=== PATIENT | female | born 1945 | race Two or more races ===

== ENCOUNTER 2021-02-17 19:00 | Inpatient (IN) | payer MEDICAID, OTHER ==
[~2021-02-17] VITALS: Ht 160 cm; Wt 46.9 kg
[2021-02-18] MEDS ORDERED: SODIUM CHLORIDE 0.9% 1,000 ML IV ONE ×2 (03:00→06:15)
[2021-02-18 05:27] LABS: Urine Bacteria FEW /hpf (None Seen); Urine Blood Negative /uL (Negative); Urine Hyaline Cast MOD /lpf (0 - 2); Urine Specific Gravity 1.015 (1.001-1.035); Urine WBC 3 /hpf (0 - 5)
[2021-02-18] MEDS ORDERED: ACETAMINOPHEN 650 MG RECT SUPP PR ONE (05:30)
[2021-02-18] MEDS ORDERED: SODIUM CHLORIDE 0.9% 2,000 ML IV ONE ×2 (05:45→14:30)
[2021-02-18] MEDS ORDERED: PIPERACILLIN-TAZOB 3.375GM 100 ML IV ONE (05:45)
[2021-02-18] MEDS ORDERED: ACETAMINOPHEN 325 MG TAB PO ONE (05:45)
[2021-02-18] MEDS ORDERED: VANCOMYCIN 1GM/250ML 250 ML IV ONE (05:45)
[2021-02-18] MEDS ORDERED: InsuLIN REG 1unit/0.01ml Soln (100units/ml) IV ONE (06:00)
[2021-02-18 07:55] LABS: White Blood Cell 9.2 10^3/uL (4.4-10.8)
[2021-02-18 07:58] LABS: Hematocrit 41.7 % (36.0-46.0); Mean Corpuscular Hemoglobin 29.5 pg (28.0-32.0); Mean Corpuscular Hgb Conc. 33.5 g/dL (32.0-36.0); Red Blood Cells 4.74 10^6/uL (4.0-5.20); Red Cell Distribution Width 13.5 % (11.8-14.3)
[2021-02-18 08:08] LABS: Basophils % (manual) 0 (0.0-2.0); Blast Cells 0; Calcium 8.2 mg/dL (8.5-10.1); Eosinophils % (manual) 0 (0-7); Lactic Acid w/Reflex 3.9 mmol/L (0.4-2.0); Promyelocytes % 0; Reactive Lymphocytes 0
[2021-02-18 08:14] LABS: INR 1.27 (0.9-1.15); Partial Thromboplastin Time 31.9 sec (23.6-33.0)
[2021-02-18 08:17] LABS: Albumin 2.1 g/dL (3.4-5.0); Bilirubin, Total 1.3 mg/dL (0.2-1.0); Magnesium 3.1 mg/dL (1.6-2.6); Total Protein 6.4 g/dL (6.4-8.2)
[2021-02-18 08:48] LABS: Band Neutrophils % (manual) 32; Lymphocytes % (manual) 4 (10.0-50.0); Metamyelocytes % 1; Monocytes % (manual) 1 (0-12); Myelocytes % 2
[2021-02-18] MEDS ORDERED: POTASSIUM CHL 20MEQ/100ML 100 ML IV ONE ×2 (09:15→18:45)
[2021-02-18] MEDS: NOREPINEPHRINE 8 MG/250ML KIT 250 ML IV SCH (12:18)
[2021-02-18 14:14] LABS: Potassium 2.9 mmol/L (3.5-5.1)
[2021-02-18 14:21] LABS: Albumin 1.8 g/dL (3.4-5.0); Calcium 7.5 mg/dL (8.5-10.1); Potassium 3.2 mmol/L (3.5-5.1)
[2021-02-18 14:24] LABS: BUN/Creatinine Ratio 36.2; Bilirubin, Total 1.2 mg/dL (0.2-1.0); Total Protein 5.8 g/dL (6.4-8.2)
[2021-02-18] MEDS ORDERED: MORPHINE SULFATE INJECTION 2 MG/ML SYRG IV PRN (14:30)
[2021-02-18] MEDS ORDERED: NITROGLYCERIN 0.4 MG SL TAB SL PRN (14:30)
[2021-02-18] MEDS ORDERED: DEXTROSE (50%) 50ML SYRG IV PRN (14:30)
[2021-02-18] MEDS ORDERED: ONDANSETRON HCL 4 MG/2 ML VIAL IV PRN (14:30)
[2021-02-18] MEDS ORDERED: ACETAMINOPHEN 325 MG RECT SUPP PR PRN (14:30)
[2021-02-18] MEDS ORDERED: VANCOMYCIN PER PHARMACY 0 MG IV SCH (14:45)
[2021-02-18] MEDS ORDERED: ENOXAPARIN SOD 60 MG/0.6 ML SYRINGE SC ONE (15:15)
[2021-02-18 15:50] LABS: Hematocrit 39.7 % (36.0-46.0); Hemoglobin 12.9 g/dL (12.2-16.2); Mean Corpuscular Hemoglobin 29.2 pg (28.0-32.0); Mean Corpuscular Hgb Conc. 32.5 g/dL (32.0-36.0); Mean Corpuscular Volume 89.8 fL (80.0-100.0); Red Blood Cells 4.42 10^6/uL (4.0-5.20); Red Cell Distribution Width 13.3 % (11.8-14.3); White Blood Cell 27.5 10^3/uL (4.4-10.8)
[2021-02-18] MEDS ORDERED: CEFEPIME 1 GM in SODIUM CHL 0.9% 50 ML IV SCH (16:00)
[2021-02-18 16:05] LABS: Basophils % (manual) 0 (0.0-2.0); Blast Cells 0; Eosinophils % (manual) 0 (0-7); Metamyelocytes % 0; Myelocytes % 0; Promyelocytes % 0; Reactive Lymphocytes 0
[2021-02-18 16:29] LABS: Band Neutrophils % (manual) 35; Lymphocytes % (manual) 4 (10.0-50.0); Monocytes % (manual) 5 (0-12)
[2021-02-18] MEDS: SODIUM CHLORIDE 0.9% 1,000 ML IV SCH (16:36)
[2021-02-18] MEDS ORDERED: POTASSIUM EFFERVESENT TAB 25 MEQ GT ONE (16:45)
[2021-02-18] MEDS ORDERED: AMIODARONE HCL 150 MG in D5W 5% 100 ML IV ONE (16:45)
[2021-02-18] MEDS ORDERED: AMIODARONE 450mg/250ml AE 250 ML IV SCH (17:00)
[2021-02-18] MEDS ORDERED: AMIODARONE HCL (50 MG/ ML) 3 ML VIAL IV ONE (17:33)
[2021-02-18] MEDS ORDERED: PIPERACILLIN-TAZOB 2.25GM 50 ML IV SCH (18:00)
[2021-02-18 18:01] LABS: Albumin 1.5 g/dL (3.4-5.0); BUN/Creatinine Ratio 38.9; Calcium 6.6 mg/dL (8.5-10.1)
[2021-02-18 18:10] LABS: Bilirubin, Total 0.9 mg/dL (0.2-1.0); Total Protein 5.2 g/dL (6.4-8.2)
[2021-02-18 18:21] LABS: Potassium 2.7 mmol/L (3.5-5.1)
[2021-02-18] MEDS: ACCU-CHEK COMFORT CURVE STRIP VI SCH (18:40)
[2021-02-18] MEDS: InsuLIN REG 1unit/0.01ml Soln (100units/ml) SC SCH (18:50)
[2021-02-18] MEDS ORDERED: LORazepam 2MG/ML-1ML VIAL ONE (20:47)
[2021-02-18] MEDS: AMIODARONE 450mg/250ml AE 250 ML IV SCH (23:22)
[2021-02-19] MEDS: InsuLIN REG 1unit/0.01ml Soln (100units/ml) SC SCH ×4 (00:13→21:50)
[2021-02-19] MEDS: ACCU-CHEK COMFORT CURVE STRIP VI SCH ×4 (00:13→21:18)
[2021-02-19] MEDS: SODIUM CHLORIDE 0.9% 1,000 ML IV SCH ×2 (03:50→17:23)
[2021-02-19] MEDS ORDERED: CEFEPIME 1 GM in SODIUM CHL 0.9% 50 ML IV SCH (06:00)
[2021-02-19 08:45] LABS: Basophils # (auto) 0 10 ^3/uL (0-0.2); Basophils % (auto) 0.1 % (0.0-2.0); Eosinophils # (auto) 1.2 10 ^3/uL (0-0.8); Eosinophils % (auto) 6.4 % (0.0-7.0); Hematocrit 37.8 % (36.0-46.0); Hemoglobin 12.2 g/dL (12.2-16.2); Lymphocytes # (auto) 0.5 10 ^3/uL (0.4-5.4); Lymphocytes % (auto) 2.4 % (10.0-50.0); Mean Corpuscular Hemoglobin 28.8 pg (28.0-32.0); Mean Corpuscular Hgb Conc. 32.2 g/dL (32.0-36.0); Mean Corpuscular Volume 89.6 fL (80.0-100.0); Monocytes # (auto) 0.3 10 ^3/uL (0-1.3); Monocytes % (auto) 1.7 % (0.0-12.0); Neutrophils # (auto) 17.2 10 ^3/uL (1.6-8.6); Neutrophils % (auto) 89.4 % (37.0-80.0); Nucleated Red Blood Cells % 0.4 %; Red Blood Cells 4.22 10^6/uL (4.0-5.20); Red Cell Distribution Width 13.6 % (11.8-14.3); White Blood Cell 19.2 10^3/uL (4.4-10.8)
[2021-02-19 09:30] LABS: Potassium 3.1 mmol/L (3.5-5.1); Sodium 146 mmol/L (136-145)
[2021-02-19 09:31] LABS: Alanine Aminotransferase 189 U/L (13-56); Albumin 1.4 g/dL (3.4-5.0); Alkaline Phosphatase 541 U/L (45-117); Anion Gap 12 (5-15); Aspartate Aminotransferase 373 U/L (15-37); BUN/Creatinine Ratio 38.1; Bilirubin, Total 2.1 mg/dL (0.2-1.0); Blood Urea Nitrogen 45 mg/dL (7-18); Calcium 7.2 mg/dL (8.5-10.1); Carbon Dioxide 11 mmol/L (21-32); Chloride 123 mmol/L (98-107); Cholesterol < 50 mg/dL (< 200); GFR African American 57 mL/min; GFR Non-African American 47 mL/min; Glucose 160 mg/dL (74-106); HDL Cholesterol 11 mg/dL (40-59); LDL Cholesterol 15 mg/dL (< 100); Total Protein 4.9 g/dL (6.4-8.2); Triglycerides 105 mg/dL (< 150)
[2021-02-19] MEDS ORDERED: ENOXAPARIN SOD 60 MG/0.6 ML SYRINGE SC SCH (10:00)
[2021-02-19] MEDS: PANTOPRAZOLE 40 MG/10 ML VIAL INJ IV SCH (10:20)
[2021-02-19] MEDS: NOREPINEPHRINE 8 MG/250ML KIT 250 ML IV SCH (11:00)
[2021-02-19 11:29] LABS: Lactic Acid w/Reflex 4.8 mmol/L (0.4-2.0)
[2021-02-19] MEDS ORDERED: LORazepam 2MG/ML-1ML VIAL IV PRN ×2 (11:30→22:45)
[2021-02-19] MEDS ORDERED: GADOTERATE MEG 7.5 MMOL/15ml INJ (0.5MMOL/ml) IV ONE (11:41)
[2021-02-19] MEDS ORDERED: VANCOMYCIN 1GM/250ML 250 ML IV ONE (13:45)
[2021-02-19] MEDS ORDERED: DIGOXIN (250MCG/ML) 2 ML AMPULE IV SCH (14:00)
[2021-02-19 14:40] LABS: Albumin 1.6 g/dL (3.4-5.0); Calcium 7.3 mg/dL (8.5-10.1); Potassium 3.4 mmol/L (3.5-5.1)
[2021-02-19 14:43] LABS: Amphetamine Screen, Urine NEGATIVE (NEGATIVE); Barbiturate Scree,Urine NEGATIVE (NEGATIVE); Benzodiazephine Screen, Urine NEGATIVE (NEGATIVE); Cannabinoid Screen, Urine NEGATIVE (NEGATIVE); Cocaine Screen, Urine NEGATIVE (NEGATIVE); Opiate Scree,Urine NEGATIVE (NEGATIVE); Phencyclidine Screen, Urine NEGATIVE (NEGATIVE)
[2021-02-19 14:46] LABS: BUN/Creatinine Ratio 35.3; Bilirubin, Total 2.8 mg/dL (0.2-1.0); Total Protein 5.2 g/dL (6.4-8.2)
[2021-02-19] MEDS: AMIODARONE 450mg/250ml AE 250 ML IV SCH (15:19)
[2021-02-19] MEDS ORDERED: MIDAZOLAM HCL 2MG/2ML 2ml VIAL (1mg/ml) IV ONE (15:30)
[2021-02-19] MEDS ORDERED: fentaNYL CITRATE 100 MCG/2 ML VL IV ONE (15:30)
[2021-02-19] MEDS ORDERED: fentaNYL CITRATE 100 MCG/2 ML VL ONE (15:37)
[2021-02-19] MEDS ORDERED: MIDAZOLAM HCL 2MG/2ML 2ml VIAL (1mg/ml) ONE (15:37)
[2021-02-19] MEDS ORDERED: ALBUMIN 25% 100 ML IV ONE (16:15)
[2021-02-19] MEDS ORDERED: SODIUM CHLORIDE 0.9% 1,000 ML IV ONE (16:15)
[2021-02-19] MEDS: metroNIDAZOLE 500MG/100ML 100 ML IV SCH (22:08)
[2021-02-19 22:41] LABS: Hemoglobin 13.7 g/dL (12.2-16.2)
[2021-02-19 22:43] LABS: Hematocrit 42.2 % (36.0-46.0); Mean Corpuscular Hemoglobin 29.2 pg (28.0-32.0); Mean Corpuscular Hgb Conc. 32.5 g/dL (32.0-36.0); Mean Corpuscular Volume 90.1 fL (80.0-100.0); Red Blood Cells 4.68 10^6/uL (4.0-5.20); Red Cell Distribution Width 13.8 % (11.8-14.3); White Blood Cell 28.8 10^3/uL (4.4-10.8)
[2021-02-19 22:58] LABS: Albumin 1.7 g/dL (3.4-5.0); Calcium 7.3 mg/dL (8.5-10.1); Potassium 3.7 mmol/L (3.5-5.1)
[2021-02-19 23:03] LABS: BUN/Creatinine Ratio 32.3; Bilirubin, Total 2.8 mg/dL (0.2-1.0); Total Protein 5.5 g/dL (6.4-8.2)
[2021-02-19 23:25] LABS: Basophils % (manual) 0 (0.0-2.0); Blast Cells 0; Metamyelocytes % 0; Myelocytes % 0; Promyelocytes % 0; Reactive Lymphocytes 0
[2021-02-19 23:41] LABS: Band Neutrophils % (manual) 21; Eosinophils % (manual) 3 (0-7); Lymphocytes % (manual) 11 (10.0-50.0); Monocytes % (manual) 6 (0-12)
[2021-02-20] MEDS: ACCU-CHEK COMFORT CURVE STRIP VI SCH ×5 (00:55→23:49)
[2021-02-20] MEDS: InsuLIN REG 1unit/0.01ml Soln (100units/ml) SC SCH ×5 (00:56→23:48)
[2021-02-20 02:06] VITALS: BP 125/41
[2021-02-20 02:13] VITALS: BP 125/41
[2021-02-20] MEDS: AMIODARONE 450mg/250ml AE 250 ML IV SCH ×2 (02:54→20:00)
[2021-02-20 03:40] VITALS: BP 107/59
[2021-02-20] MEDS: SODIUM CHLORIDE 0.9% 1,000 ML IV SCH (04:00)
[2021-02-20] MEDS: CEFEPIME 1 GM in SODIUM CHL 0.9% 50 ML IV SCH (05:42)
[2021-02-20] MEDS: metroNIDAZOLE 500MG/100ML 100 ML IV SCH ×3 (05:56→21:54)
[2021-02-20 08:11] LABS: INR 1.95 (0.9-1.15); Partial Thromboplastin Time 36.5 sec (23.6-33.0)
[2021-02-20] MEDS ORDERED: ALBUMIN 25% 100 ML IV ONE (08:13)
[2021-02-20] MEDS: NOREPINEPHRINE 8 MG/250ML KIT 250 ML IV SCH (11:00)
[2021-02-20] MEDS ORDERED: VANCOMYCIN PER PHARMACY 0 MG IV SCH (11:15)
[2021-02-20] MEDS ORDERED: VANCOMYCIN 1GM/250ML 250 ML IV ONE (11:30)
[2021-02-20 12:04] LABS: Hemoglobin 9.3 g/dL (12.2-16.2)
[2021-02-20 12:06] LABS: Hematocrit 28.7 % (36.0-46.0); Mean Corpuscular Hemoglobin 29.1 pg (28.0-32.0); Mean Corpuscular Hgb Conc. 32.3 g/dL (32.0-36.0); Mean Corpuscular Volume 90.1 fL (80.0-100.0); Red Blood Cells 3.18 10^6/uL (4.0-5.20); Red Cell Distribution Width 14.1 % (11.8-14.3); White Blood Cell 27.8 10^3/uL (4.4-10.8)
[2021-02-20] MEDS: PANTOPRAZOLE 40 MG/10 ML VIAL INJ IV SCH (12:14)
[2021-02-20 12:15] LABS: Basophils % (manual) 0 (0.0-2.0); Blast Cells 0; Eosinophils % (manual) 0 (0-7); Metamyelocytes % 0; Promyelocytes % 0; Reactive Lymphocytes 0
[2021-02-20 12:31] LABS: Albumin 1.3 g/dL (3.4-5.0); Magnesium 2.2 mg/dL (1.6-2.6)
[2021-02-20 12:36] LABS: BUN/Creatinine Ratio 50.6; Bilirubin, Total 2.7 mg/dL (0.2-1.0); Total Protein 3.4 g/dL (6.4-8.2)
[2021-02-20 12:57] LABS: Band Neutrophils % (manual) 12; Lymphocytes % (manual) 4 (10.0-50.0); Monocytes % (manual) 2 (0-12); Myelocytes % 1
[2021-02-20 12:58] LABS: Calcium 5.1 mg/dL (8.5-10.1); Potassium 2.3 mmol/L (3.5-5.1)
[2021-02-20] MEDS ORDERED: POTASSIUM EFFERVESENT TAB 25 MEQ GT ONE (13:15)
[2021-02-20] MEDS ORDERED: POTASSIUM CHLORIDE 40 MEQ, LIDOCAINE 1% (LOCAL ANESTH.) 4 ML in SODIUM CHL 0.9% 250 ML IV ONE (13:15)
[2021-02-20] MEDS ORDERED: CALCIUM GLUC 1,000mg/50ml-NS 50 ML IV ONE (13:15)
[2021-02-20] MEDS ORDERED: VANCOMYCIN 1GM/250ML 250 ML IV SCH (15:00)
[2021-02-20] MEDS ORDERED: ALBUMIN 25% 50 ML IV ONE (15:15)
[2021-02-20] MEDS: SODIUM BICARBONATE 50ML VIAL 50 ML in SOD CHL 0.45% 1,000 ML IV SCH (17:18)
[2021-02-20 19:10] LABS: Lymphocytes # (auto) 1.4 10 ^3/uL (0.4-5.4); Monocytes # (auto) 1.8 10 ^3/uL (0-1.3); Nucleated Red Blood Cells % 0.1 %; White Blood Cell 28.3 10^3/uL (4.4-10.8)
[2021-02-20 19:12] LABS: Basophils # (auto) 0 10 ^3/uL (0-0.2); Basophils % (auto) 0.1 % (0.0-2.0); Eosinophils # (auto) 1.7 10 ^3/uL (0-0.8); Eosinophils % (auto) 6.1 % (0.0-7.0); Hematocrit 34.3 % (36.0-46.0); Hemoglobin 11.3 g/dL (12.2-16.2); Mean Corpuscular Hemoglobin 28.8 pg (28.0-32.0); Mean Corpuscular Hgb Conc. 32.9 g/dL (32.0-36.0); Mean Corpuscular Volume 87.6 fL (80.0-100.0); Monocytes % (auto) 6.4 % (0.0-12.0); Neutrophils # (auto) 23.3 10 ^3/uL (1.6-8.6); Neutrophils % (auto) 82.4 % (37.0-80.0); Red Blood Cells 3.91 10^6/uL (4.0-5.20); Red Cell Distribution Width 14.1 % (11.8-14.3)
[2021-02-21] VITALS (13 sets, daily range): BP systolic 112–172; BP diastolic 63–110
[2021-02-21] MEDS: ACCU-CHEK COMFORT CURVE STRIP VI SCH ×3 (06:00→17:30)
[2021-02-21] MEDS: metroNIDAZOLE 500MG/100ML 100 ML IV SCH ×3 (06:11→22:53)
[2021-02-21] MEDS: CEFEPIME 1 GM in SODIUM CHL 0.9% 50 ML IV SCH (06:13)
[2021-02-21] MEDS: InsuLIN REG 1unit/0.01ml Soln (100units/ml) SC SCH ×3 (07:14→17:33)
[2021-02-21 09:28] LABS: Basophils # (auto) 0 10 ^3/uL (0-0.2); Basophils % (auto) 0.2 % (0.0-2.0); Eosinophils # (auto) 0.1 10 ^3/uL (0-0.8); Eosinophils % (auto) 0.6 % (0.0-7.0); Hematocrit 32.9 % (36.0-46.0); Hemoglobin 10.7 g/dL (12.2-16.2); Lymphocytes # (auto) 1.1 10 ^3/uL (0.4-5.4); Lymphocytes % (auto) 5.7 % (10.0-50.0); Mean Corpuscular Hemoglobin 28.3 pg (28.0-32.0); Mean Corpuscular Hgb Conc. 32.6 g/dL (32.0-36.0); Mean Corpuscular Volume 86.8 fL (80.0-100.0); Monocytes % (auto) 5.5 % (0.0-12.0); Neutrophils # (auto) 16.4 10 ^3/uL (1.6-8.6); Nucleated Red Blood Cells % 0.1 %; Red Blood Cells 3.79 10^6/uL (4.0-5.20); Red Cell Distribution Width 14.5 % (11.8-14.3); White Blood Cell 18.6 10^3/uL (4.4-10.8)
[2021-02-21 09:46] LABS: Albumin 1.7 g/dL (3.4-5.0); Calcium 7.5 mg/dL (8.5-10.1); Potassium 4.9 mmol/L (3.5-5.1)
[2021-02-21 09:50] LABS: Bilirubin, Total 5.3 mg/dL (0.2-1.0); Total Protein 4.8 g/dL (6.4-8.2)
[2021-02-21] MEDS: PANTOPRAZOLE 40 MG/10 ML VIAL INJ IV SCH (10:00)
[2021-02-21] MEDS: AMIODARONE 450mg/250ml AE 250 ML IV SCH (10:16)
[2021-02-21] MEDS: SODIUM BICARBONATE 50ML VIAL 50 ML in SOD CHL 0.45% 1,000 ML IV SCH (10:22)
[2021-02-21] MEDS ORDERED: FUROSEMIDE 40 MG/4 ML VIAL ONE (20:25)
[2021-02-21] MEDS ORDERED: FUROSEMIDE 40 MG/4 ML VIAL IV ONE (20:30)
[2021-02-21 22:03] LABS: Hematocrit 33.2 % (36.0-46.0); Red Blood Cells 3.85 10^6/uL (4.0-5.20)
[2021-02-21 22:07] LABS: Hemoglobin 11.2 g/dL (12.2-16.2); Mean Corpuscular Hemoglobin 29.1 pg (28.0-32.0); Mean Corpuscular Hgb Conc. 33.7 g/dL (32.0-36.0); Mean Corpuscular Volume 86.1 fL (80.0-100.0); Red Cell Distribution Width 14.1 % (11.8-14.3); White Blood Cell 16.1 10^3/uL (4.4-10.8)
[2021-02-21 22:25] LABS: Basophils % (manual) 0 (0.0-2.0); Blast Cells 0; Eosinophils % (manual) 0 (0-7); Promyelocytes % 0; Reactive Lymphocytes 0
[2021-02-21 22:46] LABS: Band Neutrophils % (manual) 11; Lymphocytes % (manual) 9 (10.0-50.0); Metamyelocytes % 1; Monocytes % (manual) 3 (0-12); Myelocytes % 1
[2021-02-22] MEDS ORDERED: HEPARIN SODIUM (PORCINE) 5000 UNITS/ML 1ML VIAL IV ONE
[2021-02-22] MEDS: ACCU-CHEK COMFORT CURVE STRIP VI SCH ×4 (00:10→18:01)
[2021-02-22] MEDS: InsuLIN REG 1unit/0.01ml Soln (100units/ml) SC SCH ×4 (00:10→18:02)
[2021-02-22] MEDS: AMIODARONE 450mg/250ml AE 250 ML IV SCH (01:44)
[2021-02-22 05:00] VITALS: BP 145/59
[2021-02-22] MEDS: metroNIDAZOLE 500MG/100ML 100 ML IV SCH ×2 (05:36→14:28)
[2021-02-22] MEDS: CEFEPIME 1 GM in SODIUM CHL 0.9% 50 ML IV SCH (05:36)
[2021-02-22 07:08] LABS: Albumin 1.7 g/dL (3.4-5.0); Calcium 7.3 mg/dL (8.5-10.1); Potassium 3.2 mmol/L (3.5-5.1)
[2021-02-22 07:12] LABS: Bilirubin, Total 7.2 mg/dL (0.2-1.0); Total Protein 4.6 g/dL (6.4-8.2)
[2021-02-22] MEDS: SODIUM BICARBONATE 50ML VIAL 50 ML in SOD CHL 0.45% 1,000 ML IV SCH (07:15)
[2021-02-22 08:42] LABS: Eosinophils # (auto) 0.2 10 ^3/uL (0-0.8); Mean Corpuscular Volume 85.1 fL (80.0-100.0); Neutrophils # (auto) 13.5 10 ^3/uL (1.6-8.6)
[2021-02-22 08:46] LABS: Basophils # (auto) 0.1 10 ^3/uL (0-0.2); Basophils % (auto) 0.3 % (0.0-2.0); Hematocrit 30.5 % (36.0-46.0); Hemoglobin 10.4 g/dL (12.2-16.2); Lymphocytes # (auto) 1.5 10 ^3/uL (0.4-5.4); Lymphocytes % (auto) 9.3 % (10.0-50.0); Mean Corpuscular Hemoglobin 28.9 pg (28.0-32.0); Monocytes # (auto) 0.9 10 ^3/uL (0-1.3); Monocytes % (auto) 5.7 % (0.0-12.0); Neutrophils % (auto) 83.7 % (37.0-80.0); Nucleated Red Blood Cells % 0.3 %; Red Blood Cells 3.58 10^6/uL (4.0-5.20); Red Cell Distribution Width 13.7 % (11.8-14.3); White Blood Cell 16.2 10^3/uL (4.4-10.8)
[2021-02-22 09:00] VITALS: BP 162/69
[2021-02-22] MEDS: HEPARIN SODIUM (PORCINE) 5000 UNITS/ML 1ML VIAL SC SCH ×2 (10:00→21:55)
[2021-02-22] MEDS ORDERED: METOPROLOL TARTRATE 25 MG TAB PO ONE (10:30)
[2021-02-22] MEDS ORDERED: AMIODARONE HCL 200 MG TAB PO ONE (10:30)
[2021-02-22] MEDS ORDERED: DIGOXIN (250MCG/ML) 2 ML AMPULE IV ONE (10:30)
[2021-02-22] MEDS ORDERED: POTASSIUM EFFERVESENT TAB 25 MEQ GT ONE (10:30)
[2021-02-22] MEDS: PANTOPRAZOLE 40 MG/10 ML VIAL INJ IV SCH (11:07)
[2021-02-22] MEDS ORDERED: CEFEPIME 1 GM in SODIUM CHL 0.9% 50 ML IV SCH ×2 (15:00→18:00)
[2021-02-22] MEDS: MORPHINE SULFATE INJECTION 2 MG/ML SYRG IV PRN (15:21)
[2021-02-22 17:00] VITALS: BP 142/62
[2021-02-22] MEDS ORDERED: D5W 5% 1,000 ML IV ONE (21:30)
[2021-02-22] MEDS: AMIODARONE HCL 200 MG TAB PO SCH (21:54)
[2021-02-22] MEDS: METOPROLOL TARTRATE 25 MG TAB PO SCH (21:55)
[2021-02-22 22:00] VITALS: BP 117/55
[2021-02-23] MEDS: InsuLIN REG 1unit/0.01ml Soln (100units/ml) SC SCH ×4 (00:25→18:02)
[2021-02-23] MEDS: ACCU-CHEK COMFORT CURVE STRIP VI SCH ×4 (00:25→18:01)
[2021-02-23 05:00] VITALS: BP 144/51
[2021-02-23 08:03] LABS: Potassium 3.6 mmol/L (3.5-5.1)
[2021-02-23 08:12] LABS: Albumin 1.4 g/dL (3.4-5.0); BUN/Creatinine Ratio 32.2; Bilirubin, Total 7.2 mg/dL (0.2-1.0); Total Protein 4.2 g/dL (6.4-8.2)
[2021-02-23] MEDS: CEFTRIAXONE SODIUM 2 GM in D5W 5% 50 ML IV SCH (09:56)
[2021-02-23] MEDS: METOPROLOL TARTRATE 25 MG TAB PO SCH ×2 (10:00→21:51)
[2021-02-23] MEDS: AMIODARONE HCL 200 MG TAB PO SCH ×2 (10:00→21:51)
[2021-02-23] MEDS: PANTOPRAZOLE 40 MG/10 ML VIAL INJ IV SCH (10:00)
[2021-02-23] MEDS: DIGOXIN 0.125 MG TAB PO SCH (10:00)
[2021-02-23 11:52] LABS: Hematocrit 35.6 % (36.0-46.0); Mean Corpuscular Hemoglobin 28.8 pg (28.0-32.0); Mean Corpuscular Hgb Conc. 33.6 g/dL (32.0-36.0); Mean Corpuscular Volume 85.7 fL (80.0-100.0); Red Blood Cells 4.15 10^6/uL (4.0-5.20); Red Cell Distribution Width 13.9 % (11.8-14.3)
[2021-02-23 11:57] LABS: Basophils % (manual) 0 (0.0-2.0); Blast Cells 0; Myelocytes % 0; Promyelocytes % 0; Reactive Lymphocytes 0
[2021-02-23 12:22] LABS: Band Neutrophils % (manual) 6; Eosinophils % (manual) 1 (0-7); Lymphocytes % (manual) 10 (10.0-50.0); Metamyelocytes % 1; Monocytes % (manual) 8 (0-12)
[2021-02-23 18:25] VITALS: BP 134/50
[2021-02-23 18:40] VITALS: BP 130/59
[2021-02-23 22:00] VITALS: BP 154/72
[2021-02-23 22:40] VITALS: BP 136/83
[2021-02-24] MEDS: InsuLIN REG 1unit/0.01ml Soln (100units/ml) SC SCH ×4 (00:30→17:36)
[2021-02-24] MEDS: ACCU-CHEK COMFORT CURVE STRIP VI SCH ×4 (00:31→17:31)
[2021-02-24 05:00] VITALS: BP 114/64
[2021-02-24 06:21] LABS: White Blood Cell 14.9 10^3/uL (4.4-10.8)
[2021-02-24] MEDS: MORPHINE SULFATE INJECTION 2 MG/ML SYRG IV PRN (06:23)
[2021-02-24 06:24] LABS: Hematocrit 30.8 % (36.0-46.0); Hemoglobin 10.6 g/dL (12.2-16.2); Mean Corpuscular Hemoglobin 29.3 pg (28.0-32.0); Mean Corpuscular Hgb Conc. 34.3 g/dL (32.0-36.0); Mean Corpuscular Volume 85.6 fL (80.0-100.0); Red Cell Distribution Width 13.9 % (11.8-14.3)
[2021-02-24 06:39] LABS: Basophils % (manual) 0 (0.0-2.0); Blast Cells 0; Metamyelocytes % 0; Myelocytes % 0; Promyelocytes % 0; Reactive Lymphocytes 0
[2021-02-24 08:03] LABS: Band Neutrophils % (manual) 10; Eosinophils % (manual) 1 (0-7); Lymphocytes % (manual) 19 (10.0-50.0); Monocytes % (manual) 3 (0-12)
[2021-02-24 09:00] VITALS: BP 122/45
[2021-02-24] MEDS: PANTOPRAZOLE 40 MG/10 ML VIAL INJ IV SCH (09:48)
[2021-02-24] MEDS: DIGOXIN 0.125 MG TAB PO SCH (09:48)
[2021-02-24] MEDS: AMIODARONE HCL 200 MG TAB PO SCH ×2 (09:49→21:48)
[2021-02-24] MEDS: METOPROLOL TARTRATE 25 MG TAB PO SCH ×2 (09:49→21:46)
[2021-02-24] MEDS: CEFTRIAXONE SODIUM 2 GM in D5W 5% 50 ML IV SCH (10:56)
[2021-02-24 13:00] VITALS: BP 120/50
[2021-02-24 17:00] VITALS: BP 156/52
[2021-02-24] MEDS ORDERED: INSULIN 70/30 1unit/0.01ml Susp (100units/ml) SC SCH (18:00)
[2021-02-24 22:00] VITALS: BP 150/67
[2021-02-25] MEDS: ACCU-CHEK COMFORT CURVE STRIP VI SCH ×4 (00:15→18:04)
[2021-02-25] MEDS: MORPHINE SULFATE INJECTION 2 MG/ML SYRG IV PRN ×4 (00:40→21:04)
[2021-02-25 05:00] VITALS: BP 148/69
[2021-02-25] MEDS: InsuLIN REG 1unit/0.01ml Soln (100units/ml) SC SCH ×4 (05:49→18:05)
[2021-02-25 06:00] LABS: Basophils # (auto) 0 10 ^3/uL (0-0.2); Lymphocytes # (auto) 1.3 10 ^3/uL (0.4-5.4); Neutrophils # (auto) 20.9 10 ^3/uL (1.6-8.6); Neutrophils % (auto) 90.7 % (37.0-80.0); White Blood Cell 23.1 10^3/uL (4.4-10.8)
[2021-02-25 06:04] LABS: Basophils % (auto) 0.2 % (0.0-2.0); Eosinophils # (auto) 0 10 ^3/uL (0-0.8); Eosinophils % (auto) 0.2 % (0.0-7.0); Hematocrit 31.4 % (36.0-46.0); Hemoglobin 10.7 g/dL (12.2-16.2); Lymphocytes % (auto) 5.6 % (10.0-50.0); Mean Corpuscular Hemoglobin 29.1 pg (28.0-32.0); Mean Corpuscular Volume 85.7 fL (80.0-100.0); Monocytes # (auto) 0.8 10 ^3/uL (0-1.3); Monocytes % (auto) 3.3 % (0.0-12.0); Nucleated Red Blood Cells % 0.3 %; Red Blood Cells 3.66 10^6/uL (4.0-5.20)
[2021-02-25 06:17] LABS: BUN/Creatinine Ratio 30.6
[2021-02-25 06:18] LABS: Albumin 1.4 g/dL (3.4-5.0); Calcium 6.9 mg/dL (8.5-10.1)
[2021-02-25 06:20] LABS: Bilirubin, Total 6.5 mg/dL (0.2-1.0); Total Protein 4.5 g/dL (6.4-8.2)
[2021-02-25 07:33] LABS: Potassium 2.5 mmol/L (3.5-5.1)
[2021-02-25] MEDS ORDERED: POTASSIUM CHL 20 Meq TABLET PO ONE (09:00)
[2021-02-25] MEDS ORDERED: POTASSIUM CHLORIDE 40 MEQ, LIDOCAINE 1% (LOCAL ANESTH.) 4 ML in SODIUM CHL 0.9% 250 ML IV ONE (09:00)
[2021-02-25 09:39] LABS: Magnesium 1.9 mg/dL (1.6-2.6)
[2021-02-25] MEDS: PANTOPRAZOLE 40 MG/10 ML VIAL INJ IV SCH (09:50)
[2021-02-25] MEDS: CEFTRIAXONE SODIUM 2 GM in D5W 5% 50 ML IV SCH (09:51)
[2021-02-25] MEDS: AMIODARONE HCL 200 MG TAB PO SCH (09:54)
[2021-02-25] MEDS: METOPROLOL TARTRATE 25 MG TAB PO SCH ×2 (10:56→22:28)
[2021-02-25] MEDS ORDERED: IOHEXOL 300 MG/ML 100ML BOTTLE IJ ONE (12:06)
[2021-02-25] MEDS ORDERED: D5W/SOD CHL 0.45% 1,000 ML IV ONE (12:45)
[2021-02-25] MEDS ORDERED: POTASSIUM PHOSPHATE 26.4 MEQ in SODIUM CHL 0.9% 100 ML IV ONE (13:15)
[2021-02-25] MEDS ORDERED: MIDAZOLAM HCL 2MG/2ML 2ml VIAL (1mg/ml) ONE (13:38)
[2021-02-25] MEDS ORDERED: fentaNYL CITRATE 100 MCG/2 ML VL ONE (13:38)
[2021-02-25] MEDS ORDERED: LIDOCAINE 2%HCL (LOCAL ANESTH.) INJ 20ML MDV ONE (14:03)
[2021-02-25 16:43] VITALS: BP 115/49
[2021-02-25 18:54] LABS: BUN/Creatinine Ratio 26.6; Potassium 4.4 mmol/L (3.5-5.1)
[2021-02-25 21:04] VITALS: BP 106/73
[2021-02-26] MEDS: ACCU-CHEK COMFORT CURVE STRIP VI SCH ×5 (01:29→23:30)
[2021-02-26] MEDS: InsuLIN REG 1unit/0.01ml Soln (100units/ml) SC SCH ×5 (01:30→23:31)
[2021-02-26] MEDS: MORPHINE SULFATE INJECTION 2 MG/ML SYRG IV PRN ×4 (05:25→21:38)
[2021-02-26 05:26] VITALS: BP 125/40
[2021-02-26 06:55] LABS: Basophils # (auto) 0.1 10 ^3/uL (0-0.2); Basophils % (auto) 0.4 % (0.0-2.0); Eosinophils # (auto) 0.1 10 ^3/uL (0-0.8); Eosinophils % (auto) 0.3 % (0.0-7.0); Hematocrit 27.8 % (36.0-46.0); Hemoglobin 9.5 g/dL (12.2-16.2); Lymphocytes % (auto) 6.3 % (10.0-50.0); Mean Corpuscular Hemoglobin 29.8 pg (28.0-32.0); Mean Corpuscular Hgb Conc. 34.1 g/dL (32.0-36.0); Mean Corpuscular Volume 87.5 fL (80.0-100.0); Monocytes # (auto) 0.7 10 ^3/uL (0-1.3); Monocytes % (auto) 4.3 % (0.0-12.0); Neutrophils # (auto) 14.3 10 ^3/uL (1.6-8.6); Neutrophils % (auto) 88.7 % (37.0-80.0); Nucleated Red Blood Cells % 0.1 %; Red Blood Cells 3.18 10^6/uL (4.0-5.20); Red Cell Distribution Width 14.3 % (11.8-14.3); White Blood Cell 16.1 10^3/uL (4.4-10.8)
[2021-02-26 07:07] LABS: Calcium 6.9 mg/dL (8.5-10.1); Potassium 4.4 mmol/L (3.5-5.1)
[2021-02-26 07:10] LABS: Albumin 1.2 g/dL (3.4-5.0); BUN/Creatinine Ratio 23.8
[2021-02-26 07:19] LABS: Bilirubin, Total 3.1 mg/dL (0.2-1.0)
[2021-02-26 09:00] VITALS: BP 127/39
[2021-02-26] MEDS: METOPROLOL TARTRATE 25 MG TAB PO SCH ×2 (09:17→23:30)
[2021-02-26] MEDS: CEFTRIAXONE SODIUM 2 GM in D5W 5% 50 ML IV SCH (09:17)
[2021-02-26] MEDS: PANTOPRAZOLE 40 MG/10 ML VIAL INJ IV SCH (09:17)
[2021-02-26] MEDS ORDERED: FUROSEMIDE 40 MG/4 ML VIAL IV ONE (10:15)
[2021-02-26] MEDS: ALBUMIN 25% 100 ML IV SCH ×2 (10:43→18:26)
[2021-02-26 13:00] VITALS: BP 131/38
[2021-02-26] MEDS ORDERED: LUTE15CA PO (15:42)
[2021-02-26 17:00] VITALS: BP 136/42
[2021-02-26 22:00] VITALS: BP 138/45
[2021-02-27] MEDS: ALBUMIN 25% 100 ML IV SCH (01:54)
[2021-02-27] MEDS: MORPHINE SULFATE INJECTION 2 MG/ML SYRG IV PRN ×4 (01:56→16:41)
[2021-02-27 05:00] VITALS: BP 161/51
[2021-02-27] MEDS: ACCU-CHEK COMFORT CURVE STRIP VI SCH ×4 (06:12→23:26)
[2021-02-27] MEDS: InsuLIN REG 1unit/0.01ml Soln (100units/ml) SC SCH ×4 (06:15→23:31)
[2021-02-27 06:29] LABS: Basophils # (auto) 0.1 10 ^3/uL (0-0.2); Basophils % (auto) 0.3 % (0.0-2.0); Eosinophils # (auto) 0.1 10 ^3/uL (0-0.8); Eosinophils % (auto) 0.5 % (0.0-7.0); Hematocrit 23.4 % (36.0-46.0); Lymphocytes # (auto) 0.9 10 ^3/uL (0.4-5.4); Lymphocytes % (auto) 5.2 % (10.0-50.0); Mean Corpuscular Hemoglobin 29.5 pg (28.0-32.0); Mean Corpuscular Volume 86.8 fL (80.0-100.0); Monocytes % (auto) 5.6 % (0.0-12.0); Neutrophils # (auto) 15.2 10 ^3/uL (1.6-8.6); Neutrophils % (auto) 88.4 % (37.0-80.0); Red Cell Distribution Width 14.4 % (11.8-14.3); White Blood Cell 17.2 10^3/uL (4.4-10.8)
[2021-02-27 08:31] VITALS: BP 101/47
[2021-02-27] MEDS: METOPROLOL TARTRATE 25 MG TAB PO SCH ×2 (10:00→22:00)
[2021-02-27] MEDS: PANTOPRAZOLE 40 MG/10 ML VIAL INJ IV SCH (10:18)
[2021-02-27] MEDS: CEFTRIAXONE SODIUM 2 GM in D5W 5% 50 ML IV SCH (10:18)
[2021-02-27 12:59] VITALS: BP 153/48
[2021-02-27 16:19] VITALS: BP 142/45
[2021-02-27 22:00] VITALS: BP 140/48
[2021-02-28] MEDS: MORPHINE SULFATE INJECTION 2 MG/ML SYRG IV PRN ×2 (02:41→09:22)
[2021-02-28 05:00] VITALS: BP 150/49
[2021-02-28] MEDS: ACCU-CHEK COMFORT CURVE STRIP VI SCH ×4 (05:34→23:40)
[2021-02-28] MEDS: InsuLIN REG 1unit/0.01ml Soln (100units/ml) SC SCH ×4 (05:41→23:48)
[2021-02-28 05:47] LABS: Basophils # (auto) 0.1 10 ^3/uL (0-0.2); Basophils % (auto) 0.7 % (0.0-2.0); Eosinophils # (auto) 0.1 10 ^3/uL (0-0.8); Eosinophils % (auto) 0.3 % (0.0-7.0); Hematocrit 23.6 % (36.0-46.0); Hemoglobin 7.8 g/dL (12.2-16.2); Lymphocytes # (auto) 1.1 10 ^3/uL (0.4-5.4); Lymphocytes % (auto) 7.2 % (10.0-50.0); Mean Corpuscular Hgb Conc. 33.2 g/dL (32.0-36.0); Mean Corpuscular Volume 87.3 fL (80.0-100.0); Monocytes % (auto) 6.8 % (0.0-12.0); Red Cell Distribution Width 14.8 % (11.8-14.3); White Blood Cell 15.3 10^3/uL (4.4-10.8)
[2021-02-28 06:05] LABS: Calcium 7.1 mg/dL (8.5-10.1); Potassium 3.9 mmol/L (3.5-5.1)
[2021-02-28 06:06] LABS: INR 1.54 (0.9-1.15); Partial Thromboplastin Time 27.1 sec (23.6-33.0)
[2021-02-28 06:11] LABS: BUN/Creatinine Ratio 26.8; Bilirubin, Total 2.8 mg/dL (0.2-1.0); Total Protein 4.4 g/dL (6.4-8.2)
[2021-02-28 09:00] VITALS: BP 150/44
[2021-02-28] MEDS ORDERED: ACETYLCYSTEINE 10 %(100MG/ML) SOL 4ML NEB SCH (09:15)
[2021-02-28] MEDS ORDERED: ALBUTEROL SULF 2.5 MG/0.5ML(0.5%) NEB SOLN NEB SCH (09:15)
[2021-02-28] MEDS: CEFTRIAXONE SODIUM 2 GM in D5W 5% 50 ML IV SCH (09:34)
[2021-02-28] MEDS: PANTOPRAZOLE 40 MG/10 ML VIAL INJ IV SCH (09:34)
[2021-02-28] MEDS: METOPROLOL TARTRATE 25 MG TAB PO SCH ×2 (09:35→22:00)
[2021-02-28 13:00] VITALS: BP 168/53
[2021-02-28] MEDS: HYDROmorphone HCL 2 MG/ML VL IV PRN ×2 (14:01→23:10)
[2021-02-28] MEDS: ALBUTEROL SULF 2.5 MG/0.5ML(0.5%) NEB SOLN NEB SCH ×2 (14:53→22:38)
[2021-02-28] MEDS: ACETYLCYSTEINE 10 %(100MG/ML) SOL 4ML NEB SCH ×2 (14:54→22:38)
[2021-02-28 17:00] VITALS: BP 134/47
[2021-02-28 22:00] VITALS: BP 141/52
[2021-03-01] VITALS (7 sets, daily range): BP systolic 117–148; BP diastolic 45–58
[2021-03-01] MEDS: METOPROLOL TARTRATE 25 MG TAB PO SCH ×3 (01:12→21:44)
[2021-03-01] MEDS: ACETAMINOPHEN 325 MG TAB PO PRN ×2 (01:13→21:42)
[2021-03-01 04:59] LABS: Basophils # (auto) 0 10 ^3/uL (0-0.2); Basophils % (auto) 0.2 % (0.0-2.0); Eosinophils # (auto) 0 10 ^3/uL (0-0.8); Eosinophils % (auto) 0.1 % (0.0-7.0); Hematocrit 26.7 % (36.0-46.0); Hemoglobin 8.9 g/dL (12.2-16.2); Lymphocytes # (auto) 0.6 10 ^3/uL (0.4-5.4); Lymphocytes % (auto) 3.8 % (10.0-50.0); Mean Corpuscular Hemoglobin 29.2 pg (28.0-32.0); Mean Corpuscular Hgb Conc. 33.5 g/dL (32.0-36.0); Mean Corpuscular Volume 87.2 fL (80.0-100.0); Monocytes # (auto) 1.3 10 ^3/uL (0-1.3); Monocytes % (auto) 7.4 % (0.0-12.0); Neutrophils # (auto) 14.9 10 ^3/uL (1.6-8.6); Neutrophils % (auto) 88.5 % (37.0-80.0); Nucleated Red Blood Cells % 0.1 %; Red Blood Cells 3.06 10^6/uL (4.0-5.20); Red Cell Distribution Width 14.7 % (11.8-14.3); White Blood Cell 16.9 10^3/uL (4.4-10.8)
[2021-03-01] MEDS: HYDROmorphone HCL 2 MG/ML VL IV PRN ×3 (05:16→17:50)
[2021-03-01] MEDS: ACETYLCYSTEINE 10 %(100MG/ML) SOL 4ML NEB SCH ×3 (06:00→22:58)
[2021-03-01] MEDS: ALBUTEROL SULF 2.5 MG/0.5ML(0.5%) NEB SOLN NEB SCH ×3 (06:00→22:59)
[2021-03-01] MEDS: InsuLIN REG 1unit/0.01ml Soln (100units/ml) SC SCH ×4 (06:23→23:15)
[2021-03-01] MEDS: ACCU-CHEK COMFORT CURVE STRIP VI SCH ×4 (06:23→23:17)
[2021-03-01] MEDS: HYDROcodone-ACET 5/325MG TAB PO PRN (10:14)
[2021-03-01] MEDS: PANTOPRAZOLE 40 MG/10 ML VIAL INJ IV SCH (10:23)
[2021-03-01] MEDS: CEFTRIAXONE SODIUM 2 GM in D5W 5% 50 ML IV SCH (10:26)
[2021-03-02] MEDS: ACETAMINOPHEN 325 MG TAB PO PRN (04:25)
[2021-03-02 05:29] VITALS: BP 119/42
[2021-03-02] MEDS: ACETYLCYSTEINE 10 %(100MG/ML) SOL 4ML NEB SCH ×3 (05:36→22:44)
[2021-03-02] MEDS: ALBUTEROL SULF 2.5 MG/0.5ML(0.5%) NEB SOLN NEB SCH ×3 (05:36→22:44)
[2021-03-02] MEDS: ACCU-CHEK COMFORT CURVE STRIP VI SCH ×4 (05:44→23:12)
[2021-03-02] MEDS: InsuLIN REG 1unit/0.01ml Soln (100units/ml) SC SCH ×4 (05:44→23:12)
[2021-03-02] MEDS: HYDROmorphone HCL 2 MG/ML VL IV PRN ×3 (06:19→18:28)
[2021-03-02 09:00] VITALS: BP 122/46
[2021-03-02 09:41] LABS: Eosinophils # (auto) 0 10 ^3/uL (0-0.8); Hematocrit 24.2 % (36.0-46.0)
[2021-03-02 09:43] LABS: Basophils # (auto) 0.1 10 ^3/uL (0-0.2); Basophils % (auto) 0.5 % (0.0-2.0); Eosinophils % (auto) 0.2 % (0.0-7.0); Lymphocytes % (auto) 7.3 % (10.0-50.0); Mean Corpuscular Hemoglobin 28.9 pg (28.0-32.0); Mean Corpuscular Hgb Conc. 33.1 g/dL (32.0-36.0); Mean Corpuscular Volume 87.2 fL (80.0-100.0); Monocytes # (auto) 0.8 10 ^3/uL (0-1.3); Monocytes % (auto) 5.7 % (0.0-12.0); Neutrophils # (auto) 11.7 10 ^3/uL (1.6-8.6); Neutrophils % (auto) 86.3 % (37.0-80.0); Red Blood Cells 2.78 10^6/uL (4.0-5.20); White Blood Cell 13.5 10^3/uL (4.4-10.8)
[2021-03-02 10:03] LABS: Albumin 1.6 g/dL (3.4-5.0); BUN/Creatinine Ratio 33.9; Bilirubin, Total 1.7 mg/dL (0.2-1.0); Calcium 7.2 mg/dL (8.5-10.1); Total Protein 4.6 g/dL (6.4-8.2)
[2021-03-02] MEDS: HYDROcodone-ACET 5/325MG TAB PO PRN ×2 (10:11→16:59)
[2021-03-02] MEDS: CEFTRIAXONE SODIUM 2 GM in D5W 5% 50 ML IV SCH (10:11)
[2021-03-02] MEDS: METOPROLOL TARTRATE 25 MG TAB PO SCH ×2 (10:12→21:12)
[2021-03-02] MEDS: PANTOPRAZOLE 40 MG/10 ML VIAL INJ IV SCH (10:12)
[2021-03-02] MEDS: ENOXAPARIN SOD 40 MG/0.4 ML SYRINGE SC SCH (10:12)
[2021-03-02 12:48] VITALS: BP 104/44
[2021-03-02] MEDS: VANCOMYCIN HCL 500MG/5ML ORAL SOL PO SCH ×2 (17:01→21:25)
[2021-03-02 18:28] VITALS: BP 117/38
[2021-03-02 21:41] VITALS: BP 107/63
[2021-03-03] VITALS (7 sets, daily range): BP systolic 113–143; BP diastolic 32–78
[2021-03-03] MEDS: HYDROcodone-ACET 5/325MG TAB PO PRN ×3 (01:59→18:20)
[2021-03-03] MEDS: VANCOMYCIN HCL 500MG/5ML ORAL SOL PO SCH ×4 (05:53→21:50)
[2021-03-03] MEDS: HYDROmorphone HCL 2 MG/ML VL IV PRN ×3 (05:54→21:49)
[2021-03-03] MEDS: InsuLIN REG 1unit/0.01ml Soln (100units/ml) SC SCH ×3 (05:56→18:21)
[2021-03-03] MEDS: ACCU-CHEK COMFORT CURVE STRIP VI SCH ×3 (05:57→18:19)
[2021-03-03] MEDS: ALBUTEROL SULF 2.5 MG/0.5ML(0.5%) NEB SOLN NEB SCH ×3 (06:05→23:06)
[2021-03-03] MEDS: ACETYLCYSTEINE 10 %(100MG/ML) SOL 4ML NEB SCH ×3 (06:06→23:06)
[2021-03-03] MEDS: CEFTRIAXONE SODIUM 2 GM in D5W 5% 50 ML IV SCH (10:00)
[2021-03-03] MEDS: ENOXAPARIN SOD 40 MG/0.4 ML SYRINGE SC SCH (10:12)
[2021-03-03] MEDS: FLORASTOR (S. BOULARDII) 250 MG CAP PO SCH (10:12)
[2021-03-03] MEDS: METOPROLOL TARTRATE 25 MG TAB PO SCH ×2 (10:14→21:50)
[2021-03-03] MEDS: metroNIDAZOLE 500 MG TAB PO SCH ×2 (15:34→21:50)
[2021-03-04] MEDS: ACCU-CHEK COMFORT CURVE STRIP VI SCH ×4 (00:24→17:52)
[2021-03-04] MEDS: InsuLIN REG 1unit/0.01ml Soln (100units/ml) SC SCH ×4 (00:24→18:00)
[2021-03-04 05:00] VITALS: BP 134/49
[2021-03-04 06:12] LABS: Basophils # (auto) 0.1 10 ^3/uL (0-0.2); Eosinophils # (auto) 0.1 10 ^3/uL (0-0.8); Lymphocytes # (auto) 1.1 10 ^3/uL (0.4-5.4)
[2021-03-04 06:14] LABS: Basophils % (auto) 0.4 % (0.0-2.0); Eosinophils % (auto) 0.6 % (0.0-7.0); Hematocrit 25.1 % (36.0-46.0); Hemoglobin 8.4 g/dL (12.2-16.2); Mean Corpuscular Hgb Conc. 33.5 g/dL (32.0-36.0); Mean Corpuscular Volume 86.7 fL (80.0-100.0); Monocytes # (auto) 1.4 10 ^3/uL (0-1.3); Monocytes % (auto) 9.1 % (0.0-12.0); Neutrophils # (auto) 12.8 10 ^3/uL (1.6-8.6); Neutrophils % (auto) 82.9 % (37.0-80.0); Nucleated Red Blood Cells % 0.2 %; Red Cell Distribution Width 15.2 % (11.8-14.3); White Blood Cell 15.5 10^3/uL (4.4-10.8)
[2021-03-04] MEDS: metroNIDAZOLE 500 MG TAB PO SCH ×3 (06:15→21:51)
[2021-03-04] MEDS: VANCOMYCIN HCL 500MG/5ML ORAL SOL PO SCH ×4 (06:15→21:51)
[2021-03-04 06:42] LABS: Potassium 4.4 mmol/L (3.5-5.1)
[2021-03-04 06:47] LABS: BUN/Creatinine Ratio 37.5; Calcium 7.7 mg/dL (8.5-10.1); Magnesium 2.9 mg/dL (1.6-2.6); Phosphorus 3.2 mg/dL (2.5-4.90)
[2021-03-04 08:35] VITALS: BP 114/49
[2021-03-04] MEDS: METOPROLOL TARTRATE 25 MG TAB PO SCH ×2 (10:00→21:53)
[2021-03-04] MEDS: ENOXAPARIN SOD 40 MG/0.4 ML SYRINGE SC SCH (10:34)
[2021-03-04] MEDS: FLORASTOR (S. BOULARDII) 250 MG CAP PO SCH (10:34)
[2021-03-04] MEDS: CEFTRIAXONE SODIUM 2 GM in D5W 5% 50 ML IV SCH (10:54)
[2021-03-04] MEDS ORDERED: GADOTERATE MEG 10 MMOL/20ml INJ (0.5MMOL/ml) IV ONE (11:26)
[2021-03-04 13:00] VITALS: BP 106/47
[2021-03-04] MEDS ORDERED: LIDOCAINE 2%HCL (LOCAL ANESTH.) INJ 20ML MDV ONE (14:03)
[2021-03-04] MEDS ORDERED: MIDAZOLAM HCL 2MG/2ML 2ml VIAL (1mg/ml) ONE (14:05)
[2021-03-04] MEDS ORDERED: fentaNYL CITRATE 100 MCG/2 ML VL ONE (14:05)
[2021-03-04 16:26] LABS: Hematocrit 21.7 % (36.0-46.0); Hemoglobin 7.2 g/dL (12.2-16.2); Mean Corpuscular Hemoglobin 28.6 pg (28.0-32.0); Mean Corpuscular Hgb Conc. 33.1 g/dL (32.0-36.0); Mean Corpuscular Volume 86.4 fL (80.0-100.0); Red Blood Cells 2.51 10^6/uL (4.0-5.20); Red Cell Distribution Width 15.1 % (11.8-14.3); White Blood Cell 13.5 10^3/uL (4.4-10.8)
[2021-03-04 16:30] LABS: Basophils % (manual) 0 (0.0-2.0); Blast Cells 0; Metamyelocytes % 0; Myelocytes % 0; Promyelocytes % 0; Reactive Lymphocytes 0
[2021-03-04 16:33] LABS: INR 1.41 (0.9-1.15); Partial Thromboplastin Time 37.6 sec (23.6-33.0)
[2021-03-04 17:04] VITALS: BP 133/50
[2021-03-04 17:24] LABS: Band Neutrophils % (manual) 5; Eosinophils % (manual) 1 (0-7); Lymphocytes % (manual) 13 (10.0-50.0); Monocytes % (manual) 13 (0-12)
[2021-03-04] MEDS ORDERED: LIDOCAINE 1% (LOCAL ANESTH.) PF 5ml SDV ID ONE (18:45)
[2021-03-04] MEDS: ACETYLCYSTEINE 10 %(100MG/ML) SOL 4ML NEB SCH (19:55)
[2021-03-04] MEDS: ALBUTEROL SULF 2.5 MG/0.5ML(0.5%) NEB SOLN NEB SCH (19:56)
[2021-03-04] MEDS: SODIUM CHLOR 0.9% PF (SALINE LOCK) 10ML VIAL/SYR IV SCH (21:50)
[2021-03-04 22:00] VITALS: BP 133/55
[2021-03-04] MEDS: HYDROcodone-ACET 5/325MG TAB PO PRN (22:17)
[2021-03-05] MEDS: InsuLIN REG 1unit/0.01ml Soln (100units/ml) SC SCH ×4 (00:30→18:21)
[2021-03-05] MEDS: ACCU-CHEK COMFORT CURVE STRIP VI SCH ×4 (00:30→18:05)
[2021-03-05 05:00] VITALS: BP 102/46
[2021-03-05] MEDS: VANCOMYCIN HCL 500MG/5ML ORAL SOL PO SCH ×4 (06:27→21:06)
[2021-03-05] MEDS: metroNIDAZOLE 500 MG TAB PO SCH ×3 (06:27→21:07)
[2021-03-05 06:32] LABS: Basophils # (auto) 0.1 10 ^3/uL (0-0.2); Eosinophils # (auto) 0.1 10 ^3/uL (0-0.8); Monocytes # (auto) 1.5 10 ^3/uL (0-1.3); Red Cell Distribution Width 15.1 % (11.8-14.3)
[2021-03-05 06:35] LABS: Basophils % (auto) 0.6 % (0.0-2.0); Eosinophils % (auto) 1.1 % (0.0-7.0); Hematocrit 25.2 % (36.0-46.0); Hemoglobin 8.2 g/dL (12.2-16.2); Lymphocytes # (auto) 1.5 10 ^3/uL (0.4-5.4); Lymphocytes % (auto) 10.9 % (10.0-50.0); Mean Corpuscular Hemoglobin 28.4 pg (28.0-32.0); Mean Corpuscular Hgb Conc. 32.5 g/dL (32.0-36.0); Mean Corpuscular Volume 87.2 fL (80.0-100.0); Monocytes % (auto) 10.5 % (0.0-12.0); Neutrophils # (auto) 10.6 10 ^3/uL (1.6-8.6); Neutrophils % (auto) 76.9 % (37.0-80.0); Nucleated Red Blood Cells % 0.1 %; Red Blood Cells 2.89 10^6/uL (4.0-5.20); White Blood Cell 13.8 10^3/uL (4.4-10.8)
[2021-03-05] MEDS: ACETYLCYSTEINE 10 %(100MG/ML) SOL 4ML NEB SCH ×3 (06:39→17:49)
[2021-03-05] MEDS: ALBUTEROL SULF 2.5 MG/0.5ML(0.5%) NEB SOLN NEB SCH ×3 (06:39→17:49)
[2021-03-05] MEDS: HYDROcodone-ACET 5/325MG TAB PO PRN ×3 (06:44→18:55)
[2021-03-05 07:13] LABS: Potassium 3.8 mmol/L (3.5-5.1)
[2021-03-05 07:24] LABS: Calcium 7.5 mg/dL (8.5-10.1)
[2021-03-05 08:00] VITALS: BP 101/28
[2021-03-05 09:00] VITALS: BP 101/28
[2021-03-05] MEDS: METOPROLOL TARTRATE 25 MG TAB PO SCH ×2 (10:00→21:06)
[2021-03-05] MEDS: ENOXAPARIN SOD 40 MG/0.4 ML SYRINGE SC SCH (10:50)
[2021-03-05] MEDS: SODIUM CHLOR 0.9% PF (SALINE LOCK) 10ML VIAL/SYR IV SCH ×2 (10:50→21:05)
[2021-03-05] MEDS: FLORASTOR (S. BOULARDII) 250 MG CAP PO SCH (10:50)
[2021-03-05] MEDS: CEFTRIAXONE SODIUM 2 GM in D5W 5% 50 ML IV SCH (11:35)
[2021-03-05 13:00] VITALS: BP 112/37
[2021-03-05 17:00] VITALS: BP 117/32
[2021-03-05] MEDS ORDERED: PHYTONADIONE(VitK) ORAL Susp 5mg/5ml(1mg/ml) PO ONE (17:00)
[2021-03-05 22:00] VITALS: BP 126/53
[2021-03-06] MEDS: ACCU-CHEK COMFORT CURVE STRIP VI SCH ×5 (00:20→23:34)
[2021-03-06] MEDS: InsuLIN REG 1unit/0.01ml Soln (100units/ml) SC SCH ×5 (00:24→23:40)
[2021-03-06 05:00] VITALS: BP 111/61
[2021-03-06] MEDS: metroNIDAZOLE 500 MG TAB PO SCH ×3 (05:43→21:45)
[2021-03-06] MEDS: VANCOMYCIN HCL 500MG/5ML ORAL SOL PO SCH ×4 (05:44→21:45)
[2021-03-06] MEDS: HYDROcodone-ACET 5/325MG TAB PO PRN ×3 (05:45→21:53)
[2021-03-06] MEDS: ALBUTEROL SULF 2.5 MG/0.5ML(0.5%) NEB SOLN NEB SCH ×3 (07:15→23:06)
[2021-03-06] MEDS: ACETYLCYSTEINE 10 %(100MG/ML) SOL 4ML NEB SCH ×3 (07:15→23:07)
[2021-03-06 07:34] LABS: Hematocrit 27.6 % (36.0-46.0); Hemoglobin 8.9 g/dL (12.2-16.2); Mean Corpuscular Hemoglobin 28.3 pg (28.0-32.0); Mean Corpuscular Hgb Conc. 32.2 g/dL (32.0-36.0); Mean Corpuscular Volume 87.8 fL (80.0-100.0); Red Blood Cells 3.14 10^6/uL (4.0-5.20); Red Cell Distribution Width 15.3 % (11.8-14.3); White Blood Cell 14.1 10^3/uL (4.4-10.8)
[2021-03-06 07:43] LABS: Potassium 3.7 mmol/L (3.5-5.1)
[2021-03-06 07:46] LABS: BUN/Creatinine Ratio 35.7; Calcium 7.4 mg/dL (8.5-10.1)
[2021-03-06 07:49] LABS: Basophils % (manual) 0 (0.0-2.0); Blast Cells 0; Promyelocytes % 0; Reactive Lymphocytes 0
[2021-03-06 08:46] LABS: Band Neutrophils % (manual) 3; Eosinophils % (manual) 3 (0-7); Lymphocytes % (manual) 9 (10.0-50.0); Metamyelocytes % 3; Monocytes % (manual) 11 (0-12); Myelocytes % 2
[2021-03-06 09:00] VITALS: BP 118/51
[2021-03-06] MEDS: CEFTRIAXONE SODIUM 2 GM in D5W 5% 50 ML IV SCH (10:27)
[2021-03-06] MEDS: FLORASTOR (S. BOULARDII) 250 MG CAP PO SCH (10:27)
[2021-03-06] MEDS: SODIUM CHLOR 0.9% PF (SALINE LOCK) 10ML VIAL/SYR IV SCH ×2 (10:27→21:37)
[2021-03-06] MEDS: ENOXAPARIN SOD 40 MG/0.4 ML SYRINGE SC SCH (10:27)
[2021-03-06] MEDS: METOPROLOL TARTRATE 25 MG TAB PO SCH ×2 (10:28→21:45)
[2021-03-06 11:47] LABS: INR 1.36 (0.9-1.15)
[2021-03-06 14:11] VITALS: BP 116/52
[2021-03-06] MEDS: HYDROmorphone HCL 2 MG/ML VL IV PRN (16:38)
[2021-03-06 17:00] VITALS: BP 135/53
[2021-03-06 22:00] VITALS: BP 132/73
[2021-03-07] MEDS ORDERED: TEMAZEPAM 15 MG CAP PO ONE (00:45)
[2021-03-07 05:00] VITALS: BP 134/54
[2021-03-07] MEDS: InsuLIN REG 1unit/0.01ml Soln (100units/ml) SC SCH ×4 (05:25→23:44)
[2021-03-07] MEDS: ACCU-CHEK COMFORT CURVE STRIP VI SCH ×3 (05:25→17:24)
[2021-03-07] MEDS: VANCOMYCIN HCL 500MG/5ML ORAL SOL PO SCH ×4 (05:34→22:20)
[2021-03-07] MEDS: metroNIDAZOLE 500 MG TAB PO SCH (05:34)
[2021-03-07 06:23] LABS: Hematocrit 27.9 % (36.0-46.0); Hemoglobin 8.8 g/dL (12.2-16.2); Mean Corpuscular Hemoglobin 27.8 pg (28.0-32.0); Mean Corpuscular Hgb Conc. 31.6 g/dL (32.0-36.0); Mean Corpuscular Volume 87.9 fL (80.0-100.0); Red Blood Cells 3.17 10^6/uL (4.0-5.20); Red Cell Distribution Width 15.2 % (11.8-14.3); White Blood Cell 15.8 10^3/uL (4.4-10.8)
[2021-03-07 06:28] LABS: Basophils % (manual) 0 (0.0-2.0); Blast Cells 0; Promyelocytes % 0; Reactive Lymphocytes 0
[2021-03-07 06:33] LABS: Chloride 104 mmol/L (98-107); Potassium 3.5 mmol/L (3.5-5.1); Sodium 140 mmol/L (136-145)
[2021-03-07 06:42] LABS: Anion Gap 8 (5-15); BUN/Creatinine Ratio 27.8; Blood Urea Nitrogen 10 mg/dL (7-18); Calcium 7.6 mg/dL (8.5-10.1); Carbon Dioxide 28 mmol/L (21-32); GFR African American 225 mL/min; GFR Non-African American 186 mL/min; Glucose 105 mg/dL (74-106)
[2021-03-07 07:04] LABS: Band Neutrophils % (manual) 10; Eosinophils % (manual) 2 (0-7); Lymphocytes % (manual) 8 (10.0-50.0); Metamyelocytes % 1; Monocytes % (manual) 9 (0-12); Myelocytes % 7
[2021-03-07 08:15] VITALS: BP 122/51
[2021-03-07] MEDS: HYDROmorphone HCL 2 MG/ML VL IV PRN ×2 (08:47→17:23)
[2021-03-07] MEDS: ALBUTEROL SULF 2.5 MG/0.5ML(0.5%) NEB SOLN NEB SCH ×3 (08:52→22:39)
[2021-03-07] MEDS: ACETYLCYSTEINE 10 %(100MG/ML) SOL 4ML NEB SCH ×3 (08:53→22:39)
[2021-03-07 09:00] VITALS: BP 122/51
[2021-03-07] MEDS: FLORASTOR (S. BOULARDII) 250 MG CAP PO SCH (09:47)
[2021-03-07] MEDS: CEFTRIAXONE SODIUM 2 GM in D5W 5% 50 ML IV SCH (09:47)
[2021-03-07] MEDS: METOPROLOL TARTRATE 25 MG TAB PO SCH ×2 (09:47→22:00)
[2021-03-07] MEDS: SODIUM CHLOR 0.9% PF (SALINE LOCK) 10ML VIAL/SYR IV SCH ×2 (09:47→22:20)
[2021-03-07] MEDS: ENOXAPARIN SOD 40 MG/0.4 ML SYRINGE SC SCH (09:48)
[2021-03-07 13:00] VITALS: BP 126/54
[2021-03-07] MEDS: MEROPENEM 1GM IVPB 100 ML IV SCH ×3 (13:01→22:20)
[2021-03-07 17:06] VITALS: BP 144/55
[2021-03-08] VITALS (9 sets, daily range): BP systolic 106–138; BP diastolic 44–72
[2021-03-08] MEDS: ACCU-CHEK COMFORT CURVE STRIP VI SCH ×4 (00:29→18:09)
[2021-03-08] MEDS: HYDROmorphone HCL 2 MG/ML VL IV PRN ×2 (00:42→09:58)
[2021-03-08] MEDS: InsuLIN REG 1unit/0.01ml Soln (100units/ml) SC SCH ×3 (06:00→18:10)
[2021-03-08] MEDS: VANCOMYCIN HCL 500MG/5ML ORAL SOL PO SCH ×3 (06:13→18:09)
[2021-03-08 06:42] LABS: Hemoglobin 8.2 g/dL (12.2-16.2)
[2021-03-08 06:44] LABS: Hematocrit 24.8 % (36.0-46.0); INR 1.27 (0.9-1.15); Mean Corpuscular Hemoglobin 28.7 pg (28.0-32.0); Mean Corpuscular Hgb Conc. 33.1 g/dL (32.0-36.0); Mean Corpuscular Volume 86.8 fL (80.0-100.0); Red Blood Cells 2.85 10^6/uL (4.0-5.20); Red Cell Distribution Width 15.5 % (11.8-14.3); White Blood Cell 17.2 10^3/uL (4.4-10.8)
[2021-03-08 07:00] LABS: Basophils % (manual) 0 (0.0-2.0); Blast Cells 0; Promyelocytes % 0; Reactive Lymphocytes 0
[2021-03-08] MEDS: ACETYLCYSTEINE 10 %(100MG/ML) SOL 4ML NEB SCH ×3 (07:05→20:07)
[2021-03-08] MEDS: ALBUTEROL SULF 2.5 MG/0.5ML(0.5%) NEB SOLN NEB SCH ×3 (07:05→20:07)
[2021-03-08 07:10] LABS: Chloride 106 mmol/L (98-107); Potassium 3.5 mmol/L (3.5-5.1); Sodium 141 mmol/L (136-145)
[2021-03-08 07:20] LABS: Anion Gap 9 (5-15); BUN/Creatinine Ratio 19.5; Blood Urea Nitrogen 8 mg/dL (7-18); Calcium 7.4 mg/dL (8.5-10.1); Carbon Dioxide 26 mmol/L (21-32); GFR African American 194 mL/min; GFR Non-African American 160 mL/min; Glucose 111 mg/dL (74-106)
[2021-03-08 07:41] LABS: Band Neutrophils % (manual) 10; Eosinophils % (manual) 1 (0-7); Lymphocytes % (manual) 7 (10.0-50.0); Metamyelocytes % 2; Monocytes % (manual) 6 (0-12); Myelocytes % 3
[2021-03-08] MEDS: MEROPENEM 1GM IVPB 100 ML IV SCH (09:45)
[2021-03-08] MEDS: FLORASTOR (S. BOULARDII) 250 MG CAP PO SCH (09:45)
[2021-03-08] MEDS: SODIUM CHLOR 0.9% PF (SALINE LOCK) 10ML VIAL/SYR IV SCH (09:45)
[2021-03-08] MEDS: METOPROLOL TARTRATE 25 MG TAB PO SCH ×2 (09:46→22:00)
[2021-03-08] MEDS: ENOXAPARIN SOD 40 MG/0.4 ML SYRINGE SC SCH (09:47)
[2021-03-08] MEDS ORDERED: phytonadione 10 MG in SODIUM CHL 0.9% 50 ML IV ONE (13:30)
[2021-03-08] MEDS: HYDROcodone-ACET 5/325MG TAB PO PRN (18:19)
[2021-03-09] MEDS: MEROPENEM 1GM IVPB 100 ML IV SCH ×3 (01:30→21:21)
[2021-03-09] MEDS: SODIUM CHLOR 0.9% PF (SALINE LOCK) 10ML VIAL/SYR IV SCH ×3 (01:30→21:22)
[2021-03-09] MEDS: VANCOMYCIN HCL 500MG/5ML ORAL SOL PO SCH ×5 (01:31→21:22)
[2021-03-09 05:00] VITALS: BP 156/62
[2021-03-09] MEDS: ACCU-CHEK COMFORT CURVE STRIP VI SCH ×4 (06:00→16:59)
[2021-03-09] MEDS: InsuLIN REG 1unit/0.01ml Soln (100units/ml) SC SCH ×4 (06:00→17:09)
[2021-03-09 06:45] LABS: Red Cell Distribution Width 15.4 % (11.8-14.3)
[2021-03-09 06:47] LABS: Hematocrit 25.4 % (36.0-46.0); Hemoglobin 8.5 g/dL (12.2-16.2); Mean Corpuscular Hgb Conc. 33.5 g/dL (32.0-36.0); Mean Corpuscular Volume 86.7 fL (80.0-100.0); Red Blood Cells 2.93 10^6/uL (4.0-5.20); White Blood Cell 18.1 10^3/uL (4.4-10.8)
[2021-03-09 06:57] LABS: INR 1.16 (0.9-1.15); Partial Thromboplastin Time 28.4 sec (23.6-33.0)
[2021-03-09 06:58] LABS: Basophils % (manual) 0 (0.0-2.0); Blast Cells 0; Promyelocytes % 0; Reactive Lymphocytes 0
[2021-03-09 07:05] LABS: BUN/Creatinine Ratio 22.2; Calcium 7.6 mg/dL (8.5-10.1); Potassium 3.6 mmol/L (3.5-5.1)
[2021-03-09] MEDS: ALBUTEROL SULF 2.5 MG/0.5ML(0.5%) NEB SOLN NEB SCH ×3 (07:15→19:22)
[2021-03-09] MEDS: ACETYLCYSTEINE 10 %(100MG/ML) SOL 4ML NEB SCH ×3 (07:15→19:22)
[2021-03-09 07:44] LABS: Band Neutrophils % (manual) 5; Eosinophils % (manual) 1 (0-7); Lymphocytes % (manual) 17 (10.0-50.0); Metamyelocytes % 2; Monocytes % (manual) 5 (0-12); Myelocytes % 2
[2021-03-09 08:30] VITALS: BP 145/61
[2021-03-09] MEDS: FLORASTOR (S. BOULARDII) 250 MG CAP PO SCH (09:55)
[2021-03-09] MEDS: METOPROLOL TARTRATE 25 MG TAB PO SCH ×2 (09:56→21:42)
[2021-03-09] MEDS: ENOXAPARIN SOD 40 MG/0.4 ML SYRINGE SC SCH (09:56)
[2021-03-09] MEDS ORDERED: CATHFLO ACTIVASE (ALTEPLASE) 2 MG VIAL IV ONE (11:30)
[2021-03-09 13:00] VITALS: BP 157/60
[2021-03-09] MEDS: NS 0.9% XX SCH ×2 (14:00→18:00)
[2021-03-09] MEDS: ALTEPLASE CATHFLO XX SCH ×2 (14:00→18:00)
[2021-03-09 17:06] VITALS: BP 148/60
[2021-03-09] MEDS: HYDROcodone-ACET 5/325MG TAB PO PRN (17:09)
[2021-03-09 22:00] VITALS: BP 139/56
[2021-03-10] MEDS: ACCU-CHEK COMFORT CURVE STRIP VI SCH ×5 (00:58→23:24)
[2021-03-10] MEDS: InsuLIN REG 1unit/0.01ml Soln (100units/ml) SC SCH ×5 (01:05→23:27)
[2021-03-10 04:05] LABS: INR 1.16 (0.9-1.15); Partial Thromboplastin Time 28.2 sec (23.6-33.0)
[2021-03-10 04:30] VITALS: BP 150/63
[2021-03-10] MEDS: VANCOMYCIN HCL 500MG/5ML ORAL SOL PO SCH ×3 (06:20→17:18)
[2021-03-10] MEDS: ALBUTEROL SULF 2.5 MG/0.5ML(0.5%) NEB SOLN NEB SCH ×3 (07:15→19:12)
[2021-03-10] MEDS: ACETYLCYSTEINE 10 %(100MG/ML) SOL 4ML NEB SCH ×3 (07:15→19:13)
[2021-03-10] MEDS ORDERED: fentaNYL CITRATE 100 MCG/2 ML VL ONE ×2 (07:47→12:50)
[2021-03-10] MEDS ORDERED: HYDROmorphone HCL 2 MG/ML VL ONE (07:47)
[2021-03-10] MEDS ORDERED: MIDAZOLAM HCL 2MG/2ML 2ml VIAL (1mg/ml) ONE ×2 (07:48→12:50)
[2021-03-10] MEDS ORDERED: LIDOCAINE W/ EPINEPHRINE 1% 20ML VIAL ONE (07:51)
[2021-03-10] MEDS ORDERED: ROCURONIUM 10MG/ML 10ML VIAL IV ONE (08:34)
[2021-03-10] MEDS ORDERED: PROPOFOL 10 MG/ML 20 ML IV ONE ×2 (08:34→13:11)
[2021-03-10] MEDS ORDERED: DexAMETHasone SOD PHOS 10MG/1ML VIAL INJ ONE ×2 (08:34→13:11)
[2021-03-10] MEDS ORDERED: BUPIVACAINE W/ EPINEPH 0.25% INJ 50ML MDV ONE ×2 (08:38→13:01)
[2021-03-10] MEDS ORDERED: ONDANSETRON HCL 4 MG/2 ML VIAL IV PRN (09:00)
[2021-03-10] MEDS ORDERED: ACCU-CHEK COMFORT CURVE STRIP VI ONE (09:00)
[2021-03-10] MEDS ORDERED: MORPHINE SULFATE 4 MG/ML SYR/VIAL IV PRN (09:00)
[2021-03-10] MEDS ORDERED: LABETALOL HCL 5 MG/ML 4ML SYRINGE IV PRN (09:00)
[2021-03-10] MEDS ORDERED: ePHEDrine SULFATE 50 MG/ML AMP IV PRN (09:00)
[2021-03-10] MEDS ORDERED: MIDAZOLAM HCL 2MG/2ML 2ml VIAL (1mg/ml) IV PRN (09:00)
[2021-03-10] MEDS: SODIUM CHLOR 0.9% PF (SALINE LOCK) 10ML VIAL/SYR IV SCH ×2 (09:22→23:23)
[2021-03-10] MEDS: ENOXAPARIN SOD 40 MG/0.4 ML SYRINGE SC SCH (09:22)
[2021-03-10] MEDS: FLORASTOR (S. BOULARDII) 250 MG CAP PO SCH (10:00)
[2021-03-10] MEDS: METOPROLOL TARTRATE 25 MG TAB PO SCH ×2 (10:00→23:25)
[2021-03-10] MEDS: MEROPENEM 1GM IVPB 100 ML IV SCH ×2 (10:00→23:23)
[2021-03-10 10:48] LABS: Hemoglobin 9.1 g/dL (12.2-16.2)
[2021-03-10 10:51] LABS: Hematocrit 28.4 % (36.0-46.0); Mean Corpuscular Hemoglobin 28.3 pg (28.0-32.0); Mean Corpuscular Hgb Conc. 31.9 g/dL (32.0-36.0); Mean Corpuscular Volume 88.6 fL (80.0-100.0); Red Blood Cells 3.21 10^6/uL (4.0-5.20); Red Cell Distribution Width 16.2 % (11.8-14.3)
[2021-03-10 11:12] LABS: Potassium 3.8 mmol/L (3.5-5.1)
[2021-03-10 11:25] LABS: Albumin 1.7 g/dL (3.4-5.0); BUN/Creatinine Ratio 24.3; Bilirubin, Total 1.2 mg/dL (0.2-1.0); Calcium 7.2 mg/dL (8.5-10.1); Total Protein 4.9 g/dL (6.4-8.2)
[2021-03-10 11:28] LABS: White Blood Cell 33.1 10^3/uL (4.4-10.8)
[2021-03-10 11:29] LABS: Basophils % (manual) 0 (0.0-2.0); Blast Cells 0; Myelocytes % 0; Promyelocytes % 0; Reactive Lymphocytes 0
[2021-03-10] MEDS ORDERED: ceFAZolin 1GM/50ML 50 ML IV ONE (12:42)
[2021-03-10] MEDS ORDERED: MEPERIDINE HCL (50 MG/ML) 1 ML VIAL ONE (12:50)
[2021-03-10 12:54] LABS: Band Neutrophils % (manual) 5; Eosinophils % (manual) 1 (0-7); Lymphocytes % (manual) 7 (10.0-50.0); Metamyelocytes % 1; Monocytes % (manual) 2 (0-12)
[2021-03-10] MEDS: HYDROmorphone HCL 2 MG/ML VL IV PRN ×2 (15:59→16:09)
[2021-03-10] MEDS: metroNIDAZOLE 500MG/100ML 100 ML IV SCH (16:00)
[2021-03-10 21:37] VITALS: BP 118/54
[2021-03-11] MEDS: metroNIDAZOLE 500MG/100ML 100 ML IV SCH ×3 (02:55→15:53)
[2021-03-11 05:49] VITALS: BP 117/53
[2021-03-11] MEDS: ACCU-CHEK COMFORT CURVE STRIP VI SCH ×3 (06:25→18:20)
[2021-03-11] MEDS: InsuLIN REG 1unit/0.01ml Soln (100units/ml) SC SCH ×3 (06:32→18:24)
[2021-03-11 06:37] LABS: Hematocrit 25.7 % (36.0-46.0); Hemoglobin 8.2 g/dL (12.2-16.2)
[2021-03-11 06:40] LABS: Mean Corpuscular Hemoglobin 28.2 pg (28.0-32.0); Mean Corpuscular Volume 87.9 fL (80.0-100.0); Red Blood Cells 2.92 10^6/uL (4.0-5.20); Red Cell Distribution Width 16.2 % (11.8-14.3)
[2021-03-11] MEDS: ACETYLCYSTEINE 10 %(100MG/ML) SOL 4ML NEB SCH ×3 (06:48→21:40)
[2021-03-11] MEDS: ALBUTEROL SULF 2.5 MG/0.5ML(0.5%) NEB SOLN NEB SCH ×3 (06:48→21:40)
[2021-03-11 06:55] LABS: White Blood Cell 40.9 10^3/uL (4.4-10.8)
[2021-03-11 06:56] LABS: Basophils % (manual) 0 (0.0-2.0); Blast Cells 0; Eosinophils % (manual) 0 (0-7); Metamyelocytes % 0; Myelocytes % 0; Promyelocytes % 0; Reactive Lymphocytes 0
[2021-03-11 07:00] LABS: Albumin 1.6 g/dL (3.4-5.0); BUN/Creatinine Ratio 27.1; Calcium 7.5 mg/dL (8.5-10.1)
[2021-03-11 07:13] LABS: Bilirubin, Total 0.8 mg/dL (0.2-1.0); Total Protein 4.7 g/dL (6.4-8.2)
[2021-03-11] MEDS: VANCOMYCIN HCL 500MG/5ML ORAL SOL PO SCH ×4 (07:26→22:33)
[2021-03-11 08:07] LABS: Band Neutrophils % (manual) 7; Lymphocytes % (manual) 3 (10.0-50.0); Monocytes % (manual) 1 (0-12)
[2021-03-11 09:00] VITALS: BP 123/66
[2021-03-11] MEDS ORDERED: TPN PER PHARMACY 0 ML IV SCH (09:30)
[2021-03-11] MEDS: ENOXAPARIN SOD 40 MG/0.4 ML SYRINGE SC SCH (10:00)
[2021-03-11] MEDS: FLORASTOR (S. BOULARDII) 250 MG CAP PO SCH (10:00)
[2021-03-11] MEDS: SODIUM CHLOR 0.9% PF (SALINE LOCK) 10ML VIAL/SYR IV SCH ×2 (10:00→22:33)
[2021-03-11] MEDS: METOPROLOL TARTRATE 25 MG TAB PO SCH ×2 (10:00→22:34)
[2021-03-11] MEDS: MEROPENEM 1GM IVPB 100 ML IV SCH ×2 (10:00→22:33)
[2021-03-11 13:00] VITALS: BP 128/58
[2021-03-11 13:25] LABS: Magnesium 1.8 mg/dL (1.6-2.6); Phosphorus 2.8 mg/dL (2.5-4.90)
[2021-03-11 13:29] LABS: Pre Albumin 8.7 mg/dL (20.0-40.0)
[2021-03-11] MEDS ORDERED: IOHEXOL 300 MG/ML 100ML BOTTLE IJ ONE (14:40)
[2021-03-11 17:00] VITALS: BP 120/57
[2021-03-11] MEDS: HYDROmorphone HCL 2 MG/ML VL IV PRN (18:20)
[2021-03-11] MEDS ORDERED: AMINO ACID INFUSION IN D10W 1,000 ML IV NR (20:00)
[2021-03-11 22:00] VITALS: BP 133/54
[2021-03-12] MEDS ORDERED: DEXTROSE (50%) 50ML SYRG IV SCH
[2021-03-12] MEDS: metroNIDAZOLE 500MG/100ML 100 ML IV SCH ×4 (01:42→21:38)
[2021-03-12] MEDS: HYDROmorphone HCL 2 MG/ML VL IV PRN ×3 (01:42→18:30)
[2021-03-12] MEDS: ACCU-CHEK COMFORT CURVE STRIP VI SCH ×5 (01:43→21:38)
[2021-03-12] MEDS: InsuLIN REG 1unit/0.01ml Soln (100units/ml) SC SCH ×5 (01:44→21:41)
[2021-03-12 05:07] VITALS: BP 119/59
[2021-03-12 05:36] LABS: Hemoglobin 7.5 g/dL (12.2-16.2)
[2021-03-12 05:41] LABS: Hematocrit 23.3 % (36.0-46.0); Mean Corpuscular Hemoglobin 28.5 pg (28.0-32.0); Mean Corpuscular Hgb Conc. 32.2 g/dL (32.0-36.0); Mean Corpuscular Volume 88.6 fL (80.0-100.0); Red Blood Cells 2.64 10^6/uL (4.0-5.20)
[2021-03-12 05:58] LABS: Albumin 1.6 g/dL (3.4-5.0); Calcium 7.4 mg/dL (8.5-10.1); Magnesium 2.5 mg/dL (1.6-2.6); Potassium 3.3 mmol/L (3.5-5.1)
[2021-03-12 06:02] LABS: BUN/Creatinine Ratio 45.2; Bilirubin, Total 0.6 mg/dL (0.2-1.0); Phosphorus 2.1 mg/dL (2.5-4.90); Total Protein 4.4 g/dL (6.4-8.2)
[2021-03-12 06:12] LABS: Basophils % (manual) 0 (0.0-2.0); Blast Cells 0; Eosinophils % (manual) 0 (0-7); Metamyelocytes % 0; Myelocytes % 0; Promyelocytes % 0; Reactive Lymphocytes 0; White Blood Cell 33.8 10^3/uL (4.4-10.8)
[2021-03-12] MEDS: VANCOMYCIN HCL 500MG/5ML ORAL SOL PO SCH ×4 (07:01→20:55)
[2021-03-12] MEDS: ALBUTEROL SULF 2.5 MG/0.5ML(0.5%) NEB SOLN NEB SCH ×3 (07:35→19:20)
[2021-03-12] MEDS: ACETYLCYSTEINE 10 %(100MG/ML) SOL 4ML NEB SCH ×3 (07:35→19:20)
[2021-03-12 08:18] LABS: Band Neutrophils % (manual) 3; Lymphocytes % (manual) 10 (10.0-50.0); Monocytes % (manual) 4 (0-12)
[2021-03-12 09:00] VITALS: BP 120/53
[2021-03-12] MEDS ORDERED: MIDAZOLAM HCL 2MG/2ML 2ml VIAL (1mg/ml) ONE (09:32)
[2021-03-12] MEDS ORDERED: fentaNYL CITRATE 100 MCG/2 ML VL ONE (09:33)
[2021-03-12] MEDS: METOPROLOL TARTRATE 25 MG TAB PO SCH ×2 (10:00→21:37)
[2021-03-12] MEDS: FLORASTOR (S. BOULARDII) 250 MG CAP PO SCH (10:00)
[2021-03-12] MEDS ORDERED: POTASSIUM PHOSP 22MEQ(15MMOLE) in NS 100 ML IV ONE ×2 (10:00→18:00)
[2021-03-12] MEDS: ENOXAPARIN SOD 40 MG/0.4 ML SYRINGE SC SCH (10:00)
[2021-03-12] MEDS: SODIUM CHLOR 0.9% PF (SALINE LOCK) 10ML VIAL/SYR IV SCH ×2 (10:53→20:55)
[2021-03-12] MEDS ORDERED: LIDOCAINE 2%HCL (LOCAL ANESTH.) INJ 20ML MDV ONE (11:16)
[2021-03-12] MEDS: MEROPENEM 1GM IVPB 100 ML IV SCH ×2 (12:24→20:55)
[2021-03-12 12:30] VITALS: BP 151/67
[2021-03-12] MEDS ORDERED: IOHEXOL 350 MG/ML 100ML IJ ONE (13:10)
[2021-03-12 16:56] VITALS: BP 156/84
[2021-03-12] MEDS ORDERED: TPN PER PHARMACY IV NR ×6 (20:00)
[2021-03-12 22:00] VITALS: BP 124/62
[2021-03-13] MEDS: HYDROmorphone HCL 2 MG/ML VL IV PRN ×2 (01:06→08:58)
[2021-03-13] MEDS: ACCU-CHEK COMFORT CURVE STRIP VI SCH ×4 (05:54→23:52)
[2021-03-13] MEDS: VANCOMYCIN HCL 500MG/5ML ORAL SOL PO SCH ×4 (05:54→23:48)
[2021-03-13] MEDS: InsuLIN REG 1unit/0.01ml Soln (100units/ml) SC SCH ×4 (05:55→23:53)
[2021-03-13 06:17] LABS: Albumin 1.6 g/dL (3.4-5.0); BUN/Creatinine Ratio 48.6; Calcium 7.2 mg/dL (8.5-10.1); Potassium 3.5 mmol/L (3.5-5.1)
[2021-03-13 06:19] LABS: Bilirubin, Total 0.6 mg/dL (0.2-1.0); Phosphorus 2.2 mg/dL (2.5-4.90); Total Protein 4.4 g/dL (6.4-8.2)
[2021-03-13 07:27] LABS: Basophils # (auto) 0 10 ^3/uL (0-0.2); Basophils % (auto) 0.2 % (0.0-2.0); Eosinophils # (auto) 0.1 10 ^3/uL (0-0.8); Eosinophils % (auto) 0.2 % (0.0-7.0); Hematocrit 24.5 % (36.0-46.0); Hemoglobin 7.9 g/dL (12.2-16.2); Lymphocytes % (auto) 8.2 % (10.0-50.0); Mean Corpuscular Hemoglobin 28.6 pg (28.0-32.0); Mean Corpuscular Hgb Conc. 32.4 g/dL (32.0-36.0); Mean Corpuscular Volume 88.3 fL (80.0-100.0); Monocytes # (auto) 1.7 10 ^3/uL (0-1.3); Monocytes % (auto) 6.8 % (0.0-12.0); Neutrophils # (auto) 20.7 10 ^3/uL (1.6-8.6); Neutrophils % (auto) 84.6 % (37.0-80.0); Nucleated Red Blood Cells % 0.1 %; Red Blood Cells 2.78 10^6/uL (4.0-5.20); Red Cell Distribution Width 17.2 % (11.8-14.3); White Blood Cell 24.5 10^3/uL (4.4-10.8)
[2021-03-13 07:30] VITALS: BP 124/62
[2021-03-13] MEDS: ALBUTEROL SULF 2.5 MG/0.5ML(0.5%) NEB SOLN NEB SCH ×3 (07:49→20:02)
[2021-03-13] MEDS: ACETYLCYSTEINE 10 %(100MG/ML) SOL 4ML NEB SCH ×3 (07:49→20:02)
[2021-03-13] MEDS: metroNIDAZOLE 500MG/100ML 100 ML IV SCH ×3 (08:51→23:51)
[2021-03-13] MEDS: SOD CHL 0.45% 1,000 ML IV SCH ×3 (08:51→08:59)
[2021-03-13] MEDS: FLORASTOR (S. BOULARDII) 250 MG CAP PO SCH (08:53)
[2021-03-13] MEDS: SODIUM CHLOR 0.9% PF (SALINE LOCK) 10ML VIAL/SYR IV SCH ×2 (08:53→23:47)
[2021-03-13] MEDS: METOPROLOL TARTRATE 25 MG TAB PO SCH ×2 (08:53→23:51)
[2021-03-13] MEDS: ENOXAPARIN SOD 40 MG/0.4 ML SYRINGE SC SCH (08:55)
[2021-03-13 09:00] VITALS: BP 134/64
[2021-03-13] MEDS ORDERED: POTASSIUM PHOSPHATE 26.4 MEQ in SODIUM CHL 0.9% 100 ML IV ONE (10:00)
[2021-03-13] MEDS: MEROPENEM 1GM IVPB 100 ML IV SCH ×2 (12:46→23:47)
[2021-03-13 12:54] VITALS: BP 144/63
[2021-03-13] MEDS ORDERED: DEXTROSE (50%) 50ML SYRG IV PRN (16:45)
[2021-03-13 22:00] VITALS: BP 138/66
[2021-03-14] MEDS: SOD CHL 0.45% 1,000 ML IV SCH (01:45)
[2021-03-14] MEDS: ALBUTEROL SULF 2.5 MG/0.5ML(0.5%) NEB SOLN NEB SCH ×3 (05:58→22:00)
[2021-03-14] MEDS: ACETYLCYSTEINE 10 %(100MG/ML) SOL 4ML NEB SCH ×3 (05:58→22:00)
[2021-03-14 06:00] LABS: Albumin 1.5 g/dL (3.4-5.0); Calcium 7.1 mg/dL (8.5-10.1); Potassium 3.3 mmol/L (3.5-5.1)
[2021-03-14] MEDS: InsuLIN REG 1unit/0.01ml Soln (100units/ml) SC SCH ×3 (06:00→16:21)
[2021-03-14 06:03] LABS: Bilirubin, Total 0.8 mg/dL (0.2-1.0); Total Protein 4.3 g/dL (6.4-8.2)
[2021-03-14] MEDS: ACCU-CHEK COMFORT CURVE STRIP VI SCH ×3 (06:26→16:21)
[2021-03-14] MEDS: VANCOMYCIN HCL 500MG/5ML ORAL SOL PO SCH ×4 (06:26→22:00)
[2021-03-14 09:00] VITALS: BP 127/56
[2021-03-14] MEDS: metroNIDAZOLE 500MG/100ML 100 ML IV SCH ×2 (09:53→14:15)
[2021-03-14] MEDS: MEROPENEM 1GM IVPB 100 ML IV SCH ×2 (09:53→23:35)
[2021-03-14] MEDS: FLORASTOR (S. BOULARDII) 250 MG CAP PO SCH (09:54)
[2021-03-14] MEDS: METOPROLOL TARTRATE 25 MG TAB PO SCH ×2 (09:54→23:40)
[2021-03-14] MEDS: SODIUM CHLOR 0.9% PF (SALINE LOCK) 10ML VIAL/SYR IV SCH ×2 (09:54→22:00)
[2021-03-14] MEDS: ENOXAPARIN SOD 40 MG/0.4 ML SYRINGE SC SCH (09:55)
[2021-03-14] MEDS ORDERED: POTASSIUM PHOSPHATE 44 MEQ in D5W 5% 250 ML IV ONE (10:00)
[2021-03-14] MEDS: HYDROmorphone HCL 2 MG/ML VL IV PRN (11:57)
[2021-03-14] MEDS: Glucerna Carbsteady SHAKE Stawberry 8oz PO SCH ×2 (12:44→18:17)
[2021-03-14 13:02] VITALS: BP 128/69
[2021-03-14] MEDS: HYDROcodone-ACET 5/325MG TAB PO PRN (23:10)
[2021-03-14] MEDS: ENOXAPARIN SOD 60 MG/0.6 ML SYRINGE SC SCH (23:36)
[2021-03-15] MEDS: metroNIDAZOLE 500MG/100ML 100 ML IV SCH ×3 (01:52→16:00)
[2021-03-15] MEDS: ACCU-CHEK COMFORT CURVE STRIP VI SCH ×4 (01:52→18:21)
[2021-03-15] MEDS: InsuLIN REG 1unit/0.01ml Soln (100units/ml) SC SCH ×4 (01:53→18:21)
[2021-03-15 01:55] VITALS: BP 135/60
[2021-03-15 06:00] VITALS: BP 134/62
[2021-03-15] MEDS: ALBUTEROL SULF 2.5 MG/0.5ML(0.5%) NEB SOLN NEB SCH ×3 (06:55→19:42)
[2021-03-15] MEDS: ACETYLCYSTEINE 10 %(100MG/ML) SOL 4ML NEB SCH ×3 (06:55→19:42)
[2021-03-15] MEDS: VANCOMYCIN HCL 500MG/5ML ORAL SOL PO SCH ×4 (07:57→22:21)
[2021-03-15] MEDS: Glucerna Carbsteady SHAKE Stawberry 8oz PO SCH ×3 (08:00→18:21)
[2021-03-15 09:00] VITALS: BP 141/62
[2021-03-15] MEDS: ENOXAPARIN SOD 60 MG/0.6 ML SYRINGE SC SCH ×2 (09:40→22:23)
[2021-03-15] MEDS: HYDROmorphone HCL 2 MG/ML VL IV PRN ×3 (09:40→22:25)
[2021-03-15] MEDS: FLORASTOR (S. BOULARDII) 250 MG CAP PO SCH (09:40)
[2021-03-15] MEDS: METOPROLOL TARTRATE 25 MG TAB PO SCH ×2 (09:41→22:22)
[2021-03-15] MEDS: MEROPENEM 1GM IVPB 100 ML IV SCH ×2 (11:45→15:25)
[2021-03-15 13:00] VITALS: BP 133/58
[2021-03-15 13:42] LABS: Eosinophils # (auto) 0.1 10 ^3/uL (0-0.8)
[2021-03-15 13:43] LABS: Basophils # (auto) 0.1 10 ^3/uL (0-0.2); Basophils % (auto) 0.3 % (0.0-2.0); Eosinophils % (auto) 0.6 % (0.0-7.0); Hematocrit 21.7 % (36.0-46.0); Lymphocytes # (auto) 1.5 10 ^3/uL (0.4-5.4); Mean Corpuscular Hemoglobin 28.9 pg (28.0-32.0); Mean Corpuscular Hgb Conc. 32.3 g/dL (32.0-36.0); Mean Corpuscular Volume 89.5 fL (80.0-100.0); Monocytes % (auto) 5.7 % (0.0-12.0); Neutrophils # (auto) 15.7 10 ^3/uL (1.6-8.6); Neutrophils % (auto) 85.4 % (37.0-80.0); Red Blood Cells 2.43 10^6/uL (4.0-5.20); Red Cell Distribution Width 17.8 % (11.8-14.3); White Blood Cell 18.4 10^3/uL (4.4-10.8)
[2021-03-15 14:07] LABS: BUN/Creatinine Ratio 70.6; Calcium 7.3 mg/dL (8.5-10.1); Potassium 3.3 mmol/L (3.5-5.1)
[2021-03-15] MEDS: SODIUM CHLOR 0.9% PF (SALINE LOCK) 10ML VIAL/SYR IV SCH ×2 (15:27→22:21)
[2021-03-15] MEDS ORDERED: POTASSIUM EFFERVESENT TAB 25 MEQ GT ONE (15:45)
[2021-03-15 15:57] LABS: % Iron Saturation 31.6 % (15-50)
[2021-03-15 17:00] VITALS: BP 146/62
[2021-03-15 22:00] VITALS: BP 124/54
[2021-03-16] MEDS: metroNIDAZOLE 500MG/100ML 100 ML IV SCH ×3 (01:01→16:00)
[2021-03-16] MEDS: ACCU-CHEK COMFORT CURVE STRIP VI SCH ×4 (01:02→18:03)
[2021-03-16] MEDS: InsuLIN REG 1unit/0.01ml Soln (100units/ml) SC SCH ×4 (01:03→18:00)
[2021-03-16 05:00] VITALS: BP 147/64
[2021-03-16] MEDS: VANCOMYCIN HCL 500MG/5ML ORAL SOL PO SCH ×4 (06:30→22:21)
[2021-03-16] MEDS: HYDROcodone-ACET 5/325MG TAB PO PRN ×2 (06:33→22:22)
[2021-03-16] MEDS: ACETYLCYSTEINE 10 %(100MG/ML) SOL 4ML NEB SCH ×3 (07:26→21:50)
[2021-03-16] MEDS: ALBUTEROL SULF 2.5 MG/0.5ML(0.5%) NEB SOLN NEB SCH ×4 (07:26→22:20)
[2021-03-16] MEDS: Glucerna Carbsteady SHAKE Stawberry 8oz PO SCH ×3 (08:23→18:02)
[2021-03-16 08:47] VITALS: BP 131/54
[2021-03-16] MEDS: FLORASTOR (S. BOULARDII) 250 MG CAP PO SCH (10:07)
[2021-03-16] MEDS: METOPROLOL TARTRATE 25 MG TAB PO SCH ×2 (10:08→22:20)
[2021-03-16] MEDS: SODIUM CHLOR 0.9% PF (SALINE LOCK) 10ML VIAL/SYR IV SCH ×2 (10:09→22:20)
[2021-03-16] MEDS: ENOXAPARIN SOD 60 MG/0.6 ML SYRINGE SC SCH ×2 (10:09→22:21)
[2021-03-16] MEDS: HYDROmorphone HCL 2 MG/ML VL IV PRN (11:05)
[2021-03-16] MEDS: MEROPENEM 1GM IVPB 100 ML IV SCH ×2 (11:07→22:19)
[2021-03-16] MEDS: SODIUM FERR GLUC 62.5MG/5ML 125 MG in SODIUM CHL 0.9% 100 ML IV SCH (12:00)
[2021-03-16 13:28] LABS: INR 1.25 (0.9-1.15); Partial Thromboplastin Time 44.7 sec (23.6-33.0)
[2021-03-16 14:44] VITALS: BP 135/64
[2021-03-16 16:31] VITALS: BP 142/56
[2021-03-16 22:00] VITALS: BP 134/70
[2021-03-17] MEDS: metroNIDAZOLE 500MG/100ML 100 ML IV SCH ×3 (00:49→16:03)
[2021-03-17] MEDS: InsuLIN REG 1unit/0.01ml Soln (100units/ml) SC SCH ×4 (00:51→18:00)
[2021-03-17] MEDS: ACCU-CHEK COMFORT CURVE STRIP VI SCH ×4 (00:52→18:24)
[2021-03-17 05:06] LABS: Basophils # (auto) 0.1 10 ^3/uL (0-0.2); Basophils % (auto) 0.8 % (0.0-2.0); Eosinophils # (auto) 0.1 10 ^3/uL (0-0.8); Eosinophils % (auto) 0.9 % (0.0-7.0); Hematocrit 22.7 % (36.0-46.0); Hemoglobin 7.5 g/dL (12.2-16.2); Lymphocytes # (auto) 1.5 10 ^3/uL (0.4-5.4); Lymphocytes % (auto) 9.2 % (10.0-50.0); Mean Corpuscular Hemoglobin 29.4 pg (28.0-32.0); Mean Corpuscular Hgb Conc. 32.9 g/dL (32.0-36.0); Mean Corpuscular Volume 89.2 fL (80.0-100.0); Monocytes # (auto) 1.1 10 ^3/uL (0-1.3); Neutrophils # (auto) 13.1 10 ^3/uL (1.6-8.6); Neutrophils % (auto) 82.1 % (37.0-80.0); Red Blood Cells 2.55 10^6/uL (4.0-5.20); Red Cell Distribution Width 18.7 % (11.8-14.3); White Blood Cell 15.9 10^3/uL (4.4-10.8)
[2021-03-17 05:24] VITALS: BP 152/77
[2021-03-17 05:24] LABS: Calcium 7.3 mg/dL (8.5-10.1); Potassium 3.4 mmol/L (3.5-5.1)
[2021-03-17 05:26] LABS: BUN/Creatinine Ratio 36.8
[2021-03-17] MEDS: VANCOMYCIN HCL 500MG/5ML ORAL SOL PO SCH ×2 (06:26→12:52)
[2021-03-17] MEDS: ACETYLCYSTEINE 10 %(100MG/ML) SOL 4ML NEB SCH ×3 (07:26→21:44)
[2021-03-17] MEDS: ALBUTEROL SULF 2.5 MG/0.5ML(0.5%) NEB SOLN NEB SCH ×3 (07:26→21:44)
[2021-03-17] MEDS: Glucerna Carbsteady SHAKE Stawberry 8oz PO SCH ×3 (08:54→18:24)
[2021-03-17] MEDS ORDERED: LIDOCAINE 2%HCL (LOCAL ANESTH.) INJ 20ML MDV ONE (09:59)
[2021-03-17] MEDS ORDERED: IOHEXOL 300 MG/ML 100ML BOTTLE IJ ONE (10:10)
[2021-03-17] MEDS: MEROPENEM 1GM IVPB 100 ML IV SCH (10:12)
[2021-03-17] MEDS: ENOXAPARIN SOD 60 MG/0.6 ML SYRINGE SC SCH ×2 (10:12→22:55)
[2021-03-17] MEDS: FLORASTOR (S. BOULARDII) 250 MG CAP PO SCH (10:13)
[2021-03-17] MEDS: METOPROLOL TARTRATE 25 MG TAB PO SCH ×2 (10:13→22:57)
[2021-03-17] MEDS: SODIUM CHLOR 0.9% PF (SALINE LOCK) 10ML VIAL/SYR IV SCH ×2 (10:13→22:58)
[2021-03-17] MEDS ORDERED: MIDAZOLAM HCL 2MG/2ML 2ml VIAL (1mg/ml) ONE (10:23)
[2021-03-17] MEDS ORDERED: fentaNYL CITRATE 100 MCG/2 ML VL ONE (10:23)
[2021-03-17 10:27] VITALS: BP 148/70
[2021-03-17] MEDS: HYDROcodone-ACET 5/325MG TAB PO PRN ×2 (11:51→22:58)
[2021-03-17 13:00] VITALS: BP 150/74
[2021-03-17] MEDS: SODIUM FERR GLUC 62.5MG/5ML 125 MG in SODIUM CHL 0.9% 100 ML IV SCH (13:49)
[2021-03-17] MEDS ORDERED: LIDOCAINE 1% (LOCAL ANESTH.) PF 5ml SDV ID ONE (14:30)
[2021-03-17 17:00] VITALS: BP 150/48
[2021-03-17 22:00] VITALS: BP 150/45
[2021-03-18] MEDS: metroNIDAZOLE 500MG/100ML 100 ML IV SCH ×3 (00:32→16:22)
[2021-03-18] MEDS: ACCU-CHEK COMFORT CURVE STRIP VI SCH ×4 (00:32→18:05)
[2021-03-18] MEDS: InsuLIN REG 1unit/0.01ml Soln (100units/ml) SC SCH ×4 (00:36→18:00)
[2021-03-18] MEDS: HYDROcodone-ACET 5/325MG TAB PO PRN ×3 (06:13→22:24)
[2021-03-18] MEDS: ALBUTEROL SULF 2.5 MG/0.5ML(0.5%) NEB SOLN NEB SCH ×3 (06:45→19:09)
[2021-03-18] MEDS: ACETYLCYSTEINE 10 %(100MG/ML) SOL 4ML NEB SCH ×3 (06:45→19:08)
[2021-03-18] MEDS: Glucerna Carbsteady SHAKE Stawberry 8oz PO SCH ×3 (08:39→18:06)
[2021-03-18 09:00] VITALS: BP 144/69
[2021-03-18] MEDS: METOPROLOL TARTRATE 25 MG TAB PO SCH ×2 (09:13→21:51)
[2021-03-18] MEDS: ENOXAPARIN SOD 60 MG/0.6 ML SYRINGE SC SCH ×2 (09:13→21:50)
[2021-03-18] MEDS: FLORASTOR (S. BOULARDII) 250 MG CAP PO SCH (09:14)
[2021-03-18] MEDS: SODIUM CHLOR 0.9% PF (SALINE LOCK) 10ML VIAL/SYR IV SCH ×2 (09:14→21:51)
[2021-03-18] MEDS: CEFTRIAXONE SODIUM 2 GM in D5W 5% 50 ML IV SCH (10:17)
[2021-03-18 13:00] VITALS: BP 149/68
[2021-03-18] MEDS: SODIUM FERR GLUC 62.5MG/5ML 125 MG in SODIUM CHL 0.9% 100 ML IV SCH (13:06)
[2021-03-18 17:00] VITALS: BP 150/68
[2021-03-18 20:00] VITALS: BP 148/67
[2021-03-18 22:00] VITALS: BP 148/67
[2021-03-19] VITALS (9 sets, daily range): BP systolic 96–160; BP diastolic 56–87
[2021-03-19] MEDS: ACCU-CHEK COMFORT CURVE STRIP VI SCH ×4 (00:16→17:48)
[2021-03-19] MEDS: metroNIDAZOLE 500MG/100ML 100 ML IV SCH ×2 (00:26→08:10)
[2021-03-19] MEDS: InsuLIN REG 1unit/0.01ml Soln (100units/ml) SC SCH ×4 (06:00→18:05)
[2021-03-19] MEDS: ACETYLCYSTEINE 10 %(100MG/ML) SOL 4ML NEB SCH ×3 (06:04→22:29)
[2021-03-19] MEDS: ALBUTEROL SULF 2.5 MG/0.5ML(0.5%) NEB SOLN NEB SCH ×3 (06:04→22:29)
[2021-03-19] MEDS: Glucerna Carbsteady SHAKE Stawberry 8oz PO SCH ×3 (08:00→17:48)
[2021-03-19] MEDS: FLORASTOR (S. BOULARDII) 250 MG CAP PO SCH (10:19)
[2021-03-19] MEDS: SODIUM CHLOR 0.9% PF (SALINE LOCK) 10ML VIAL/SYR IV SCH ×2 (10:23→21:51)
[2021-03-19] MEDS: METOPROLOL TARTRATE 25 MG TAB PO SCH ×2 (10:23→21:52)
[2021-03-19] MEDS: ENOXAPARIN SOD 60 MG/0.6 ML SYRINGE SC SCH ×2 (10:23→21:54)
[2021-03-19] MEDS: CEFTRIAXONE SODIUM 2 GM in D5W 5% 50 ML IV SCH (10:24)
[2021-03-19 10:31] LABS: Eosinophils # (auto) 0.1 10 ^3/uL (0-0.8); Lymphocytes # (auto) 1.1 10 ^3/uL (0.4-5.4); Neutrophils # (auto) 10.5 10 ^3/uL (1.6-8.6)
[2021-03-19 10:32] LABS: Basophils # (auto) 0.2 10 ^3/uL (0-0.2); Basophils % (auto) 1.3 % (0.0-2.0); Eosinophils % (auto) 0.5 % (0.0-7.0); Hematocrit 21.3 % (36.0-46.0); Mean Corpuscular Hemoglobin 29.2 pg (28.0-32.0); Mean Corpuscular Hgb Conc. 32.7 g/dL (32.0-36.0); Mean Corpuscular Volume 89.1 fL (80.0-100.0); Monocytes # (auto) 0.9 10 ^3/uL (0-1.3); Monocytes % (auto) 6.8 % (0.0-12.0); Neutrophils % (auto) 82.4 % (37.0-80.0); Red Blood Cells 2.39 10^6/uL (4.0-5.20); Red Cell Distribution Width 19.6 % (11.8-14.3); White Blood Cell 12.7 10^3/uL (4.4-10.8)
[2021-03-19 11:02] LABS: BUN/Creatinine Ratio 35.3; Calcium 7.1 mg/dL (8.5-10.1)
[2021-03-19 11:04] LABS: Potassium 2.9 mmol/L (3.5-5.1)
[2021-03-19] MEDS ORDERED: POTASSIUM EFFERVESENT TAB 25 MEQ PO ONE (11:45)
[2021-03-19 12:03] LABS: Magnesium 1.7 mg/dL (1.6-2.6); Phosphorus 1.2 mg/dL (2.5-4.90)
[2021-03-19] MEDS ORDERED: MAGNESIUM SULFATE 1GM/100ML 100 ML IV ONE (13:00)
[2021-03-19] MEDS ORDERED: POTASSIUM PHOSPHATE 44 MEQ in D5W 5% 250 ML IV ONE (13:00)
[2021-03-19] MEDS: SODIUM FERR GLUC 62.5MG/5ML 125 MG in SODIUM CHL 0.9% 100 ML IV SCH (13:13)
[2021-03-19] MEDS: D5W/SOD CHL 0.45%/KCL 20MEQ 1,000 ML IV SCH (13:18)
[2021-03-19] MEDS: HYDROmorphone HCL 2 MG/ML VL IV PRN (13:19)
[2021-03-19] MEDS: MIRTAZAPINE 30 MG TAB PO SCH (21:53)
[2021-03-20] MEDS: D5W/SOD CHL 0.45%/KCL 20MEQ 1,000 ML IV SCH (00:54)
[2021-03-20] MEDS: ACCU-CHEK COMFORT CURVE STRIP VI SCH ×4 (04:12→17:32)
[2021-03-20] MEDS: hydrALAZINE HCL 20 MG/ML VL IV PRN ×2 (04:47→16:45)
[2021-03-20] MEDS: HYDROcodone-ACET 5/325MG TAB PO PRN ×2 (05:16→20:42)
[2021-03-20] MEDS: InsuLIN REG 1unit/0.01ml Soln (100units/ml) SC SCH ×4 (05:52→17:31)
[2021-03-20] MEDS: ALBUTEROL SULF 2.5 MG/0.5ML(0.5%) NEB SOLN NEB SCH ×3 (06:15→22:45)
[2021-03-20] MEDS: ACETYLCYSTEINE 10 %(100MG/ML) SOL 4ML NEB SCH ×3 (06:15→22:45)
[2021-03-20 07:11] LABS: Hematocrit 31.9 % (36.0-46.0); Hemoglobin 10.6 g/dL (12.2-16.2)
[2021-03-20 07:48] LABS: Phosphorus 2.4 mg/dL (2.5-4.90); Potassium 3.2 mmol/L (3.5-5.1)
[2021-03-20] MEDS: Glucerna Carbsteady SHAKE Stawberry 8oz PO SCH ×3 (08:00→17:32)
[2021-03-20 09:00] VITALS: BP 151/72
[2021-03-20] MEDS: CEFTRIAXONE SODIUM 2 GM in D5W 5% 50 ML IV SCH (10:39)
[2021-03-20] MEDS: SODIUM CHLOR 0.9% PF (SALINE LOCK) 10ML VIAL/SYR IV SCH ×2 (10:39→21:52)
[2021-03-20] MEDS: FLORASTOR (S. BOULARDII) 250 MG CAP PO SCH (10:40)
[2021-03-20] MEDS: ENOXAPARIN SOD 60 MG/0.6 ML SYRINGE SC SCH ×2 (10:40→21:54)
[2021-03-20] MEDS: METOPROLOL TARTRATE 25 MG TAB PO SCH ×2 (10:42→21:53)
[2021-03-20] MEDS: SODIUM FERR GLUC 62.5MG/5ML 125 MG in SODIUM CHL 0.9% 100 ML IV SCH (12:49)
[2021-03-20 13:00] VITALS: BP 144/59
[2021-03-20 17:00] VITALS: BP 160/120
[2021-03-20 18:00] VITALS: BP 127/56
[2021-03-20] MEDS: MIRTAZAPINE 30 MG TAB PO SCH (21:53)
[2021-03-20 22:00] VITALS: BP 151/57
[2021-03-21] MEDS: ACCU-CHEK COMFORT CURVE STRIP VI SCH ×4 (00:48→18:15)
[2021-03-21] MEDS: ACETAMINOPHEN 325 MG TAB PO PRN (00:48)
[2021-03-21] MEDS: InsuLIN REG 1unit/0.01ml Soln (100units/ml) SC SCH ×4 (00:48→18:15)
[2021-03-21] MEDS: D5W/SOD CHL 0.45%/KCL 20MEQ 1,000 ML IV SCH (04:33)
[2021-03-21] MEDS: hydrALAZINE HCL 20 MG/ML VL IV PRN (04:54)
[2021-03-21 05:00] VITALS: BP 156/63
[2021-03-21] MEDS: ALBUTEROL SULF 2.5 MG/0.5ML(0.5%) NEB SOLN NEB SCH ×3 (06:00→22:23)
[2021-03-21] MEDS: ACETYLCYSTEINE 10 %(100MG/ML) SOL 4ML NEB SCH ×3 (06:01→22:23)
[2021-03-21] MEDS: HYDROmorphone HCL 2 MG/ML VL IV PRN (06:07)
[2021-03-21 08:00] VITALS: BP_SYST 137; BP_SYST 156; BP_DIAS 71; BP_DIAS 86
[2021-03-21] MEDS: Glucerna Carbsteady SHAKE Stawberry 8oz PO SCH ×3 (08:00→18:14)
[2021-03-21 09:08] LABS: Basophils # (auto) 0.1 10 ^3/uL (0-0.2); Eosinophils # (auto) 0.1 10 ^3/uL (0-0.8); Eosinophils % (auto) 0.8 % (0.0-7.0); Hematocrit 31.3 % (36.0-46.0); Hemoglobin 10.4 g/dL (12.2-16.2); Lymphocytes # (auto) 1.8 10 ^3/uL (0.4-5.4); Lymphocytes % (auto) 16.3 % (10.0-50.0); Mean Corpuscular Hemoglobin 29.7 pg (28.0-32.0); Mean Corpuscular Hgb Conc. 33.2 g/dL (32.0-36.0); Mean Corpuscular Volume 89.2 fL (80.0-100.0); Monocytes # (auto) 1.2 10 ^3/uL (0-1.3); Monocytes % (auto) 10.7 % (0.0-12.0); Neutrophils # (auto) 7.8 10 ^3/uL (1.6-8.6); Neutrophils % (auto) 71.2 % (37.0-80.0); Nucleated Red Blood Cells % 0.3 %; Red Blood Cells 3.51 10^6/uL (4.0-5.20); White Blood Cell 10.9 10^3/uL (4.4-10.8)
[2021-03-21] MEDS: METOPROLOL TARTRATE 25 MG TAB PO SCH ×3 (09:16→21:56)
[2021-03-21] MEDS: FLORASTOR (S. BOULARDII) 250 MG CAP PO SCH (09:16)
[2021-03-21] MEDS: CEFTRIAXONE SODIUM 2 GM in D5W 5% 50 ML IV SCH (09:16)
[2021-03-21] MEDS: ENOXAPARIN SOD 60 MG/0.6 ML SYRINGE SC SCH ×2 (09:16→21:57)
[2021-03-21] MEDS: SODIUM CHLOR 0.9% PF (SALINE LOCK) 10ML VIAL/SYR IV SCH ×2 (09:16→22:02)
[2021-03-21 09:19] LABS: Albumin 1.6 g/dL (3.4-5.0); Calcium 7.1 mg/dL (8.5-10.1)
[2021-03-21 09:22] LABS: BUN/Creatinine Ratio 12.1
[2021-03-21 09:24] LABS: Bilirubin, Total 0.6 mg/dL (0.2-1.0); Total Protein 4.4 g/dL (6.4-8.2)
[2021-03-21 12:00] VITALS: BP 147/82
[2021-03-21] MEDS: SODIUM FERR GLUC 62.5MG/5ML 125 MG in SODIUM CHL 0.9% 100 ML IV SCH (13:28)
[2021-03-21] MEDS: HYDROcodone-ACET 5/325MG TAB PO PRN (18:02)
[2021-03-21] MEDS: MIRTAZAPINE 30 MG TAB PO SCH (21:50)
[2021-03-21 22:00] VITALS: BP 146/54
[2021-03-22] MEDS: InsuLIN REG 1unit/0.01ml Soln (100units/ml) SC SCH ×4 (00:18→17:56)
[2021-03-22] MEDS: HYDROcodone-ACET 5/325MG TAB PO PRN ×2 (02:20→15:02)
[2021-03-22 05:00] VITALS: BP 158/58
[2021-03-22] MEDS: ACCU-CHEK COMFORT CURVE STRIP VI SCH ×4 (05:23→17:56)
[2021-03-22] MEDS: ACETYLCYSTEINE 10 %(100MG/ML) SOL 4ML NEB SCH ×2 (06:05→14:12)
[2021-03-22] MEDS: ALBUTEROL SULF 2.5 MG/0.5ML(0.5%) NEB SOLN NEB SCH ×2 (06:05→14:11)
[2021-03-22 09:00] VITALS: BP 132/86
[2021-03-22] MEDS: ENOXAPARIN SOD 60 MG/0.6 ML SYRINGE SC SCH ×2 (10:00→22:00)
[2021-03-22] MEDS ORDERED: TEMAZEPAM 15 MG CAP PO PRN (10:15)
[2021-03-22 10:19] LABS: Basophils # (auto) 0.2 10 ^3/uL (0-0.2); Basophils % (auto) 1.8 % (0.0-2.0); Eosinophils # (auto) 0.2 10 ^3/uL (0-0.8); Eosinophils % (auto) 2.1 % (0.0-7.0); Hematocrit 26.8 % (36.0-46.0); Hemoglobin 8.8 g/dL (12.2-16.2); Lymphocytes # (auto) 1.7 10 ^3/uL (0.4-5.4); Lymphocytes % (auto) 19.3 % (10.0-50.0); Mean Corpuscular Hemoglobin 29.8 pg (28.0-32.0); Mean Corpuscular Hgb Conc. 32.8 g/dL (32.0-36.0); Mean Corpuscular Volume 90.8 fL (80.0-100.0); Monocytes # (auto) 0.8 10 ^3/uL (0-1.3); Monocytes % (auto) 9.7 % (0.0-12.0); Neutrophils # (auto) 5.8 10 ^3/uL (1.6-8.6); Neutrophils % (auto) 67.1 % (37.0-80.0); Nucleated Red Blood Cells % 0.2 %; Red Blood Cells 2.95 10^6/uL (4.0-5.20); Red Cell Distribution Width 18.1 % (11.8-14.3); White Blood Cell 8.6 10^3/uL (4.4-10.8)
[2021-03-22] MEDS: Glucerna Carbsteady SHAKE Stawberry 8oz PO SCH ×3 (12:00→18:00)
[2021-03-22 13:00] VITALS: BP 148/62
[2021-03-22] MEDS: CEFTRIAXONE SODIUM 2 GM in D5W 5% 50 ML IV SCH (13:06)
[2021-03-22] MEDS: METOPROLOL TARTRATE 25 MG TAB PO SCH (13:07)
[2021-03-22] MEDS: FLORASTOR (S. BOULARDII) 250 MG CAP PO SCH (13:07)
[2021-03-22] MEDS: SODIUM CHLOR 0.9% PF (SALINE LOCK) 10ML VIAL/SYR IV SCH (13:12)
[2021-03-22] MEDS: SODIUM FERR GLUC 62.5MG/5ML 125 MG in SODIUM CHL 0.9% 100 ML IV SCH (13:21)
[2021-03-22] MEDS: D5W/SOD CHL 0.45%/KCL 20MEQ 1,000 ML IV SCH ×2 (15:00→20:15)
[2021-03-22 16:00] VITALS: BP 136/68
[2021-03-22 22:00] VITALS: BP 128/73
[2021-03-23] MEDS: SODIUM CHLOR 0.9% PF (SALINE LOCK) 10ML VIAL/SYR IV SCH ×3 (00:17→22:14)
[2021-03-23] MEDS: METOPROLOL TARTRATE 25 MG TAB PO SCH ×3 (00:18→22:16)
[2021-03-23] MEDS: MIRTAZAPINE 30 MG TAB PO SCH ×2 (00:18→22:16)
[2021-03-23] MEDS: ACCU-CHEK COMFORT CURVE STRIP VI SCH ×4 (00:19→18:00)
[2021-03-23 05:00] VITALS: BP 144/67
[2021-03-23] MEDS: InsuLIN REG 1unit/0.01ml Soln (100units/ml) SC SCH ×4 (06:00→18:00)
[2021-03-23] MEDS ORDERED: ALBUTEROL SULF 2.5 MG/0.5ML(0.5%) NEB SOLN NEB PRN (06:00)
[2021-03-23] MEDS ORDERED: ACETYLCYSTEINE 10 %(100MG/ML) SOL 4ML NEB PRN (06:00)
[2021-03-23] MEDS: HYDROcodone-ACET 5/325MG TAB PO PRN ×2 (06:02→22:31)
[2021-03-23 09:00] VITALS: BP 125/64
[2021-03-23] MEDS: ENOXAPARIN SOD 60 MG/0.6 ML SYRINGE SC SCH ×2 (10:00→10:21)
[2021-03-23] MEDS: CEFTRIAXONE SODIUM 2 GM in D5W 5% 50 ML IV SCH (10:18)
[2021-03-23] MEDS: FLORASTOR (S. BOULARDII) 250 MG CAP PO SCH (10:19)
[2021-03-23] MEDS: Glucerna Carbsteady SHAKE Stawberry 8oz PO SCH ×3 (10:36→18:19)
[2021-03-23] MEDS: SODIUM FERR GLUC 62.5MG/5ML 125 MG in SODIUM CHL 0.9% 100 ML IV SCH (12:57)
[2021-03-23 13:00] VITALS: BP 153/58
[2021-03-23 22:00] VITALS: BP 155/127
[2021-03-23] MEDS: APIXABAN 5 MG TAB PO SCH (22:15)
[2021-03-24] MEDS: InsuLIN REG 1unit/0.01ml Soln (100units/ml) SC SCH ×4 (00:32→18:00)
[2021-03-24 05:00] VITALS: BP 143/75
[2021-03-24] MEDS: ACCU-CHEK COMFORT CURVE STRIP VI SCH ×4 (06:22→18:00)
[2021-03-24 08:39] VITALS: BP 140/69
[2021-03-24] MEDS: Glucerna Carbsteady SHAKE Stawberry 8oz PO SCH ×3 (08:40→18:18)
[2021-03-24] MEDS: CEFTRIAXONE SODIUM 2 GM in D5W 5% 50 ML IV SCH (08:41)
[2021-03-24] MEDS: SODIUM CHLOR 0.9% PF (SALINE LOCK) 10ML VIAL/SYR IV SCH ×2 (08:43→22:17)
[2021-03-24] MEDS: APIXABAN 5 MG TAB PO SCH ×2 (08:44→22:17)
[2021-03-24] MEDS: FLORASTOR (S. BOULARDII) 250 MG CAP PO SCH (08:44)
[2021-03-24] MEDS: METOPROLOL TARTRATE 25 MG TAB PO SCH ×2 (08:47→22:18)
[2021-03-24 11:52] VITALS: BP 149/75
[2021-03-24 16:43] VITALS: BP 149/64
[2021-03-24 22:00] VITALS: BP 114/75
[2021-03-24] MEDS: MIRTAZAPINE 30 MG TAB PO SCH (22:18)
[2021-03-24] MEDS: HYDROcodone-ACET 5/325MG TAB PO PRN (22:51)
[2021-03-25 05:00] VITALS: BP_SYST 119; BP_SYST 159; BP_DIAS 61; BP_DIAS 77
[2021-03-25] MEDS: InsuLIN REG 1unit/0.01ml Soln (100units/ml) SC SCH ×4 (06:00→17:22)
[2021-03-25] MEDS: ACCU-CHEK COMFORT CURVE STRIP VI SCH ×4 (06:00→17:23)
[2021-03-25] MEDS: Glucerna Carbsteady SHAKE Stawberry 8oz PO SCH ×3 (08:00→18:00)
[2021-03-25 08:35] VITALS: BP 172/70
[2021-03-25] MEDS: CEFTRIAXONE SODIUM 2 GM in D5W 5% 50 ML IV SCH (09:39)
[2021-03-25] MEDS: SODIUM CHLOR 0.9% PF (SALINE LOCK) 10ML VIAL/SYR IV SCH ×2 (09:39→22:14)
[2021-03-25] MEDS: METOPROLOL TARTRATE 25 MG TAB PO SCH ×3 (09:40→23:13)
[2021-03-25] MEDS: FLORASTOR (S. BOULARDII) 250 MG CAP PO SCH (09:40)
[2021-03-25] MEDS: APIXABAN 5 MG TAB PO SCH ×2 (09:40→22:13)
[2021-03-25] MEDS ORDERED: LORazepam 2MG/ML-1ML VIAL IV ONE (10:15)
[2021-03-25 13:00] VITALS: BP 171/68
[2021-03-25] MEDS ORDERED: amLODIPine BESYLATE 5 MG TAB PO ONE (16:30)
[2021-03-25 17:04] VITALS: BP_SYST 141; BP_SYST 171; BP_DIAS 68
[2021-03-25] MEDS ORDERED: DEXTROSE 50% SYRINGE 50 ML IV ONE (17:12)
[2021-03-25 22:00] VITALS: BP 129/81
[2021-03-25] MEDS: MIRTAZAPINE 30 MG TAB PO SCH (22:12)
[2021-03-25] MEDS: HYDROcodone-ACET 5/325MG TAB PO PRN (22:17)
[2021-03-25 22:30] LABS: Basophils # (auto) 0.1 10 ^3/uL (0-0.2); Eosinophils # (auto) 0.2 10 ^3/uL (0-0.8); Eosinophils % (auto) 1.8 % (0.0-7.0); Hematocrit 35.5 % (36.0-46.0); Hemoglobin 11.4 g/dL (12.2-16.2); Lymphocytes # (auto) 2.3 10 ^3/uL (0.4-5.4); Lymphocytes % (auto) 24.3 % (10.0-50.0); Mean Corpuscular Hemoglobin 29.6 pg (28.0-32.0); Mean Corpuscular Hgb Conc. 32.1 g/dL (32.0-36.0); Mean Corpuscular Volume 92.2 fL (80.0-100.0); Monocytes # (auto) 0.7 10 ^3/uL (0-1.3); Monocytes % (auto) 7.9 % (0.0-12.0); Nucleated Red Blood Cells % 0.1 %; Red Blood Cells 3.85 10^6/uL (4.0-5.20); Red Cell Distribution Width 17.9 % (11.8-14.3); White Blood Cell 9.3 10^3/uL (4.4-10.8)
[2021-03-26 05:00] VITALS: BP 119/59
[2021-03-26] MEDS: InsuLIN REG 1unit/0.01ml Soln (100units/ml) SC SCH ×2 (06:00)
[2021-03-26] MEDS: ACCU-CHEK COMFORT CURVE STRIP VI SCH ×2 (06:03)
[2021-03-26] MEDS: HYDROmorphone HCL 2 MG/ML VL IV PRN (06:16)
[2021-03-26] MEDS: Glucerna Carbsteady SHAKE Stawberry 8oz PO SCH ×2 (08:00→12:00)
[2021-03-26 08:59] VITALS: BP 152/67
[2021-03-26] MEDS: FLORASTOR (S. BOULARDII) 250 MG CAP PO SCH (09:58)
[2021-03-26] MEDS: CEFTRIAXONE SODIUM 2 GM in D5W 5% 50 ML IV SCH (09:59)
[2021-03-26] MEDS: APIXABAN 5 MG TAB PO SCH (09:59)
[2021-03-26] MEDS ORDERED: amLODIPine BESYLATE 5 MG TAB PO SCH (10:00)
[2021-03-26] MEDS: SODIUM CHLOR 0.9% PF (SALINE LOCK) 10ML VIAL/SYR IV SCH (10:02)
[2021-03-26] MEDS: METOPROLOL TARTRATE 25 MG TAB PO SCH (10:02)
[2021-03-26 13:00] VITALS: BP 140/57
[2021-03-26] MEDS ORDERED: ALBUAER3 IN (14:04)
[2021-03-26] MEDS ORDERED: AMLO-489 PO (14:04)
[2021-03-26] MEDS ORDERED: LEVO-28 PO (14:04)
[2021-03-26] MEDS ORDERED: MIR30T PO (14:04)
[2021-03-26] MEDS ORDERED: APIX5TAB PO (14:04)
[2021-03-26 15:32] VITALS: BP 140/57
[2021-03-26 15:48] VITALS: BP 140/57
== END 2021-03-26 16:25 | disposition hospice, home (50) | DRG 710 ==
LOC: ER 19:03 → EDBD 02-18 14:20 → TELE 02-18 14:20 → TELE-WESTW 02-21 02:50 → TELE-CENTR 03-11 14:16 → CENTRAL 03-23 14:44
PROVIDERS: ADMIT Family Medicine; ATTEND Internal Medicine
PROC: 0F903ZZ Drainage of Liver, Percutaneous Approach (ICD-10-PCS; 2021-02-19)
PROC: 5A09357 Assistance with Respiratory Ventilation, Less than 24 Consecutive Hours, Continuous Positive Airway Pressure (ICD-10-PCS; 2021-02-21)
PROC: 30233R1 Transfusion of Nonautologous Platelets into Peripheral Vein, Percutaneous Approach (ICD-10-PCS; 2021-02-21)
PROC: 06HY33Z Insertion of Infusion Device into Lower Vein, Percutaneous Approach (ICD-10-PCS; 2021-02-22)
PROC: 0W9930Z Drainage of Right Pleural Cavity with Drainage Device, Percutaneous Approach (ICD-10-PCS; 2021-02-25)
PROC: 0F9030Z Drainage of Liver with Drainage Device, Percutaneous Approach (ICD-10-PCS; 2021-02-25)
PROC: 0F9030Z Drainage of Liver with Drainage Device, Percutaneous Approach (ICD-10-PCS; 2021-03-04)
PROC: 30233K1 Transfusion of Nonautologous Frozen Plasma into Peripheral Vein, Percutaneous Approach (ICD-10-PCS; 2021-03-08)
PROC: 0F9030Z Drainage of Liver with Drainage Device, Percutaneous Approach (ICD-10-PCS; 2021-03-10)
PROC: BF45ZZZ Ultrasonography of Liver (ICD-10-PCS; 2021-03-10)
PROC: 0F9 Hepatobiliary System and Pancreas, Drainage (ICD-10-PCS; principal; 2021-03-10 07:55)
PROC: 0W9B3ZZ Drainage of Left Pleural Cavity, Percutaneous Approach (ICD-10-PCS; 2021-03-12)
PROC: 0F903ZZ Drainage of Liver, Percutaneous Approach (ICD-10-PCS; 2021-03-17)
PROC: BF15ZZA Fluoroscopy of Liver, Guidance (ICD-10-PCS; 2021-03-17)
PROC: 30233N1 Transfusion of Nonautologous Red Blood Cells into Peripheral Vein, Percutaneous Approach (ICD-10-PCS; 2021-03-19)
DX: A41.59 Other Gram-negative sepsis (principal); R65.21 Severe sepsis with septic shock; N17.0 Acute kidney failure with tubular necrosis; J96.00 Acute respiratory failure, unspecified whether with hypoxia or hypercapnia; K75.0 Abscess of liver; G93.41 Metabolic encephalopathy; A04.72 Enterocolitis due to Clostridium difficile, not specified as recurrent; E43 Unspecified severe protein-calorie malnutrition; I21.A1 Myocardial infarction type 2; E87.0 Hyperosmolality and hypernatremia; J93.83 Other pneumothorax; D68.9 Coagulation defect, unspecified; Z68.1 Body mass index [BMI] 19.9 or less, adult; I82.621 Acute embolism and thrombosis of deep veins of right upper extremity; Z20.822 Contact with and (suspected) exposure to COVID-19; E87.6 Hypokalemia; D64.9 Anemia, unspecified; E83.51 Hypocalcemia; I50.9 Heart failure, unspecified; D69.6 Thrombocytopenia, unspecified; I11.0 Hypertensive heart disease with heart failure; I48.0 Paroxysmal atrial fibrillation; E11.65 Type 2 diabetes mellitus with hyperglycemia
CPT/HCPCS: 10005; 32555; 36415; 36569; 36600; 70450; 71045; 71250; 74150; 74176; 74177; 74178; 74181; 74183; 75984; 75989; 76604; 76705; 76937; 76942; 77002; 77012; 78582; 80048; 80053; 80061; 80202; 80307; 81001; 82040; 82565; 82607; 82728; 82805; 82962; 83036; 83540; 83550; 83605; 83615; 83735; 83880; 84100; 84443; 84478; 84484; 84520; 85007; 85014; 85018; 85025; 85027; 85379; 85384; 85610; 85730; 86850; 86900; 86901; 86920; 87040; 87077; 87081; 87086; 87186; 87205; 87426; 87493; 87804; 93005; 93306; 93970; 93971; 94002; 94640; 94660; 94762; 96361; 96365; 97110; 97116; 97163; 97530; C1729; C9113; G0378; J0690; J0696; J1100; J1815; J2001; J2185; J2250; J2543; J2704; J3430; J3480; J3490; J7060; P9047

== ENCOUNTER 2021-08-21 23:49 | Emergency (ER) | payer MEDICAID ==
[~2021-08-21] VITALS: Ht 160 cm; Wt 49.9 kg
[~2021-08-21 23:49] MED LIST: ALBUAER3 IN; AMLO-489 PO; APIX5TAB PO; LEVO-28 PO; MIR30T PO
[2021-08-22 00:16] LABS: Basophils # (auto) 0.1 10 ^3/uL (0-0.2); Basophils % (auto) 1.5 % (0.0-2.0); Eosinophils # (auto) 0.3 10 ^3/uL (0-0.8); Eosinophils % (auto) 2.6 % (0.0-7.0); Hematocrit 40.6 % (36.0-46.0); Hemoglobin 13.6 g/dL (12.2-16.2); Lymphocytes # (auto) 2.6 10 ^3/uL (0.4-5.4); Lymphocytes % (auto) 27.8 % (10.0-50.0); Mean Corpuscular Hemoglobin 30.6 pg (28.0-32.0); Mean Corpuscular Hgb Conc. 33.6 g/dL (32.0-36.0); Monocytes # (auto) 0.6 10 ^3/uL (0-1.3); Monocytes % (auto) 6.6 % (0.0-12.0); Neutrophils # (auto) 5.8 10 ^3/uL (1.6-8.6); Neutrophils % (auto) 61.5 % (37.0-80.0); Nucleated Red Blood Cells % 0.1 %; Red Blood Cells 4.46 10^6/uL (4.0-5.20); Red Cell Distribution Width 14.2 % (11.8-14.3); White Blood Cell 9.5 10^3/uL (4.4-10.8)
[2021-08-22 00:30] LABS: Partial Thromboplastin Time 23.7 sec (23.6-33.0)
[2021-08-22 00:32] LABS: Albumin 3.6 g/dL (3.4-5.0); BUN/Creatinine Ratio 18.4; Calcium 8.9 mg/dL (8.5-10.1); Potassium 4.4 mmol/L (3.5-5.1)
[2021-08-22 00:34] LABS: Bilirubin, Total 0.4 mg/dL (0.2-1.0); Total Protein 6.9 g/dL (6.4-8.2)
[2021-08-22 01:39] VITALS: BP 177/87
== END 2021-08-22 01:57 | disposition home or self-care (01) ==
LOC: ER 23:49
DX: S01.01XA Laceration without foreign body of scalp, initial encounter (principal); I10 Essential (primary) hypertension; W18.09XA Striking against other object with subsequent fall, initial encounter; Y93.89 Activity, other specified; Y92.89 Other specified places as the place of occurrence of the external cause; Y99.8 Other external cause status
CPT/HCPCS: 12001; 36415; 70450; 80053; 84484; 85025; 85610; 85730; 86850; 86900; 86901; 93005

== ENCOUNTER 2021-08-30 11:37 | Emergency (ER) | payer MEDICAID ==
[~2021-08-30] VITALS: Ht 152.4 cm; Wt 45.4 kg
[2021-08-30 12:59] VITALS: BP 157/91
== END 2021-08-30 13:01 | disposition home or self-care (01) ==
LOC: ER 11:37
DX: S01.01XD Laceration without foreign body of scalp, subsequent encounter (principal); W18.39XD Other fall on same level, subsequent encounter; I10 Essential (primary) hypertension

== ENCOUNTER 2021-11-27 16:14 | Inpatient (IN) | payer MEDICAID ==
[~2021-11-27] VITALS: Ht 160 cm; Wt 42.7 kg
[2021-11-27 17:29] LABS: Basophils # (auto) 0 10 ^3/uL (0-0.2); Basophils % (auto) 0.3 % (0.0-2.0); Eosinophils # (auto) 0 10 ^3/uL (0-0.8); Eosinophils % (auto) 0.5 % (0.0-7.0); Hematocrit 37.9 % (36.0-46.0); Hemoglobin 12.6 g/dL (12.2-16.2); Lymphocytes # (auto) 2.1 10 ^3/uL (0.4-5.4); Lymphocytes % (auto) 25.6 % (10.0-50.0); Mean Corpuscular Hgb Conc. 33.3 g/dL (32.0-36.0); Mean Corpuscular Volume 90.2 fL (80.0-100.0); Monocytes # (auto) 1.2 10 ^3/uL (0-1.3); Neutrophils # (auto) 4.7 10 ^3/uL (1.6-8.6); Neutrophils % (auto) 58.6 % (37.0-80.0); Nucleated Red Blood Cells % 0.1 %; Red Cell Distribution Width 13.1 % (11.8-14.3); White Blood Cell 8.1 10^3/uL (4.4-10.8)
[2021-11-27 17:46] LABS: Albumin 3.3 g/dL (3.4-5.0); BUN/Creatinine Ratio 14.1; Magnesium 2.2 mg/dL (1.6-2.6)
[2021-11-27 17:48] LABS: Bilirubin, Total 0.3 mg/dL (0.2-1.0); Total Protein 7.2 g/dL (6.4-8.2)
[2021-11-27] MEDS ORDERED: FAMOTIDINE (10MG/ML) 2ML VL IV ONE (20:30)
[2021-11-27] MEDS ORDERED: ONDANSETRON HCL 4 MG/2 ML VIAL IV ONE (20:30)
[2021-11-27] MEDS ORDERED: ALUM & MAG HYDROX-SIMETH LIQ(MAALOX) 30 ML PO ONE (20:30)
[2021-11-27] MEDS ORDERED: SODIUM CHLORIDE 0.9% 1,000 ML IV ONE (20:30)
[2021-11-27] MEDS ORDERED: ACETAMINOPHEN 325 MG TAB PO PRN (20:45)
[2021-11-27] MEDS ORDERED: ONDANSETRON HCL 4 MG/2 ML VIAL IV PRN (20:45)
[2021-11-27] MEDS ORDERED: SOD CHL 0.45% 1,000 ML IV SCH (20:45)
[2021-11-27] MEDS ORDERED: HYDROcodone-ACET 5/325MG TAB PO ONE (20:45)
[2021-11-27] MEDS ORDERED: MORPHINE SULFATE INJ 2 MG/ml SYRG IV PRN (21:30)
[2021-11-27] MEDS ORDERED: NITROGLYCERIN 0.4 MG SL TAB SL PRN (21:30)
[2021-11-27 23:15] VITALS: BP 121/63
[2021-11-28 03:29] LABS: Urine Bacteria FEW /hpf (None Seen); Urine Blood Negative /uL (Negative); Urine Mucus FEW (None Seen); Urine Specific Gravity 1.026 (1.001-1.035); Urine WBC 5 /hpf (0 - 5)
[2021-11-28 05:42] VITALS: BP 141/61
[2021-11-28 06:07] LABS: Potassium 3.6 mmol/L (3.5-5.1)
[2021-11-28 06:11] LABS: Albumin 2.9 g/dL (3.4-5.0); BUN/Creatinine Ratio 19.6; Calcium 8.3 mg/dL (8.5-10.1)
[2021-11-28 06:13] LABS: Bilirubin, Total 0.3 mg/dL (0.2-1.0); Total Protein 5.9 g/dL (6.4-8.2)
[2021-11-28 07:18] LABS: Hematocrit 34.9 % (36.0-46.0); Hemoglobin 11.7 g/dL (12.2-16.2); Mean Corpuscular Hemoglobin 30.5 pg (28.0-32.0); Mean Corpuscular Hgb Conc. 33.6 g/dL (32.0-36.0); Mean Corpuscular Volume 90.7 fL (80.0-100.0); Red Blood Cells 3.85 10^6/uL (4.0-5.20); White Blood Cell 6.1 10^3/uL (4.4-10.8)
[2021-11-28 07:31] LABS: Basophils % (manual) 0 (0.0-2.0); Blast Cells 0; Metamyelocytes % 0; Myelocytes % 0; Promyelocytes % 0; Reactive Lymphocytes 0
[2021-11-28 08:48] VITALS: BP 136/61
[2021-11-28] MEDS: SOD CHL 0.45% 1,000 ML IV SCH ×2 (08:53→21:05)
[2021-11-28] MEDS: FAMOTIDINE (10MG/ML) 2ML VL IV SCH (08:53)
[2021-11-28] MEDS ORDERED: levoFLOXacin 500MG 100 ML IV ONE (11:00)
[2021-11-28 12:30] VITALS: BP 140/55
[2021-11-28 13:40] LABS: Band Neutrophils % (manual) 14; Eosinophils % (manual) 1 (0-7); Lymphocytes % (manual) 36 (10.0-50.0); Monocytes % (manual) 15 (0-12)
[2021-11-28] MEDS ORDERED: metroNIDAZOLE 500MG/100ML 100 ML IV SCH (14:00)
[2021-11-28 17:15] VITALS: BP 149/60
[2021-11-28] MEDS: VANCOMYCIN HCL 125MG/5ML ORAL SOL PO SCH ×2 (18:05→22:13)
[2021-11-28] MEDS ORDERED: CLOP75TA70 PO (18:11)
[2021-11-28] MEDS ORDERED: METO25TA5 PO (18:11)
[2021-11-28] MEDS ORDERED: ONDA-144 PO (18:11)
[2021-11-28] MEDS ORDERED: POLYDRO3 EACHEYE (18:11)
[2021-11-28 20:00] VITALS: BP 146/75
[2021-11-28 22:00] VITALS: BP 146/75
[2021-11-29 05:00] VITALS: BP 167/71
[2021-11-29 05:54] LABS: Hematocrit 33.4 % (36.0-46.0); Hemoglobin 11.3 g/dL (12.2-16.2); Mean Corpuscular Hemoglobin 30.2 pg (28.0-32.0); Mean Corpuscular Hgb Conc. 33.8 g/dL (32.0-36.0); Mean Corpuscular Volume 89.2 fL (80.0-100.0); Red Blood Cells 3.75 10^6/uL (4.0-5.20); Red Cell Distribution Width 12.6 % (11.8-14.3); White Blood Cell 7.3 10^3/uL (4.4-10.8)
[2021-11-29] MEDS: VANCOMYCIN HCL 125MG/5ML ORAL SOL PO SCH ×4 (06:01→22:04)
[2021-11-29 06:14] LABS: Calcium 8.3 mg/dL (8.5-10.1); Potassium 3.4 mmol/L (3.5-5.1)
[2021-11-29 06:17] LABS: BUN/Creatinine Ratio 24.4
[2021-11-29 06:28] LABS: Basophils % (manual) 0 (0.0-2.0); Blast Cells 0; Eosinophils % (manual) 0 (0-7); Metamyelocytes % 0; Myelocytes % 0; Promyelocytes % 0; Reactive Lymphocytes 0
[2021-11-29 08:00] LABS: Band Neutrophils % (manual) 9; Lymphocytes % (manual) 19 (10.0-50.0); Monocytes % (manual) 11 (0-12)
[2021-11-29 08:32] VITALS: BP 164/62
[2021-11-29] MEDS: FAMOTIDINE (10MG/ML) 2ML VL IV SCH (09:04)
[2021-11-29] MEDS: levoFLOXacin 250MG 50 ML IV SCH (09:04)
[2021-11-29] MEDS: hydrALAZINE HCL 20 MG/ML VL IV PRN ×2 (09:04→22:05)
[2021-11-29] MEDS ORDERED: levoFLOXacin 500MG 100 ML IV SCH (10:00)
[2021-11-29] MEDS: SOD CHL 0.45% WITH 20MEQ KCL 1,000 ML IV SCH (10:01)
[2021-11-29] MEDS: HYDROcodone-ACET 5/325MG TAB PO PRN ×2 (13:15→17:48)
[2021-11-29 13:49] VITALS: BP 143/65
[2021-11-29 16:56] VITALS: BP 145/64
[2021-11-29 22:00] VITALS: BP 177/85
[2021-11-30] MEDS: SOD CHL 0.45% WITH 20MEQ KCL 1,000 ML IV SCH ×3 (00:10→17:47)
[2021-11-30 05:00] VITALS: BP 170/77
[2021-11-30] MEDS: hydrALAZINE HCL 20 MG/ML VL IV PRN ×2 (05:43→16:44)
[2021-11-30] MEDS: VANCOMYCIN HCL 125MG/5ML ORAL SOL PO SCH ×4 (05:43→22:14)
[2021-11-30 06:37] LABS: Hematocrit 35.1 % (36.0-46.0); Mean Corpuscular Hemoglobin 30.1 pg (28.0-32.0); Mean Corpuscular Hgb Conc. 34.3 g/dL (32.0-36.0); Mean Corpuscular Volume 87.8 fL (80.0-100.0); Red Blood Cells 3.99 10^6/uL (4.0-5.20); Red Cell Distribution Width 12.9 % (11.8-14.3); White Blood Cell 7.6 10^3/uL (4.4-10.8)
[2021-11-30 06:56] LABS: BUN/Creatinine Ratio 18.2; Calcium 8.3 mg/dL (8.5-10.1); Potassium 3.3 mmol/L (3.5-5.1)
[2021-11-30 06:58] LABS: Basophils % (manual) 0 (0.0-2.0); Eosinophils % (manual) 0 (0-7); Reactive Lymphocytes 0
[2021-11-30 08:30] VITALS: BP 148/73
[2021-11-30 08:51] LABS: Band Neutrophils % (manual) 3; Blast Cells 2; Lymphocytes % (manual) 34 (10.0-50.0); Metamyelocytes % 3; Monocytes % (manual) 6 (0-12); Myelocytes % 3; Promyelocytes % 4
[2021-11-30] MEDS: levoFLOXacin 250MG 50 ML IV SCH (08:55)
[2021-11-30 08:58] VITALS: BP 148/73
[2021-11-30] MEDS ORDERED: POTASSIUM EFFERVESENT TAB 25 MEQ PO ONE (09:15)
[2021-11-30] MEDS ORDERED: POTASSIUM PHOSPHATE 22 MEQ in SODIUM CHL 0.9% 100 ML IV ONE (10:00)
[2021-11-30 12:30] VITALS: BP 156/69
[2021-11-30 16:42] VITALS: BP 173/78
[2021-11-30] MEDS: HYDROcodone-ACET 5/325MG TAB PO PRN (16:45)
[2021-11-30 22:00] VITALS: BP 151/70
[2021-12-01 05:00] VITALS: BP 131/72
[2021-12-01] MEDS: SOD CHL 0.45% WITH 20MEQ KCL 1,000 ML IV SCH ×2 (05:14→18:02)
[2021-12-01] MEDS: VANCOMYCIN HCL 125MG/5ML ORAL SOL PO SCH ×4 (05:51→21:19)
[2021-12-01] MEDS: HYDROcodone-ACET 5/325MG TAB PO PRN ×2 (05:52→21:35)
[2021-12-01 05:59] LABS: Calcium 8.8 mg/dL (8.5-10.1)
[2021-12-01 06:03] LABS: BUN/Creatinine Ratio 10.9
[2021-12-01 08:00] VITALS: BP 147/73
[2021-12-01 08:30] VITALS: BP 147/73
[2021-12-01] MEDS: FLORASTOR (S. BOULARDII) 250 MG CAP PO SCH ×2 (10:34→21:19)
[2021-12-01] MEDS: PANTOPRAZOLE 40 MG TAB PO SCH (10:34)
[2021-12-01] MEDS: levoFLOXacin 250MG 50 ML IV SCH (10:34)
[2021-12-01 12:30] VITALS: BP 127/67
[2021-12-01 16:12] VITALS: BP 119/74
[2021-12-01 21:54] VITALS: BP 177/79
[2021-12-02 05:00] VITALS: BP 186/82
[2021-12-02] MEDS: VANCOMYCIN HCL 125MG/5ML ORAL SOL PO SCH ×2 (05:52→15:27)
[2021-12-02] MEDS: hydrALAZINE HCL 20 MG/ML VL IV PRN (05:53)
[2021-12-02] MEDS: SOD CHL 0.45% WITH 20MEQ KCL 1,000 ML IV SCH (06:01)
[2021-12-02] MEDS: FLORASTOR (S. BOULARDII) 250 MG CAP PO SCH (08:02)
[2021-12-02] MEDS: levoFLOXacin 250MG 50 ML IV SCH ×2 (08:02→08:10)
[2021-12-02] MEDS: PANTOPRAZOLE 40 MG TAB PO SCH (08:02)
[2021-12-02 09:18] VITALS: BP 151/78
[2021-12-02 12:43] VITALS: BP 144/72
[2021-12-02 16:46] VITALS: BP 157/89
[2021-12-02] MEDS ORDERED: SACC250C PO (16:51)
[2021-12-02] MEDS ORDERED: VANC125PO PO (16:51)
[2021-12-02 19:20] VITALS: BP 144/72
== END 2021-12-02 21:45 | disposition home or self-care (01) | DRG 249 ==
LOC: ER 16:16 → OVERFLOW 21:17 → CENTRAL 23:00
PROVIDERS: ADMIT Nurse Practitioner Family; ATTEND Nurse Practitioner Acute Care
DX: K52.9 Noninfective gastroenteritis and colitis, unspecified (principal); E43 Unspecified severe protein-calorie malnutrition; N17.9 Acute kidney failure, unspecified; E88.09 Other disorders of plasma-protein metabolism, not elsewhere classified; E83.39 Other disorders of phosphorus metabolism; E11.22 Type 2 diabetes mellitus with diabetic chronic kidney disease; E86.0 Dehydration; E86.1 Hypovolemia; A04.72 Enterocolitis due to Clostridium difficile, not specified as recurrent; E87.6 Hypokalemia; Z20.822 Contact with and (suspected) exposure to COVID-19; I12.9 Hypertensive chronic kidney disease with stage 1 through stage 4 chronic kidney disease, or unspecified chronic kidney disease; Z68.1 Body mass index [BMI] 19.9 or less, adult; Z79.899 Other long term (current) drug therapy
CPT/HCPCS: 36415; 71045; 74176; 80048; 80053; 81001; 83036; 83605; 83735; 83880; 84100; 84484; 85007; 85025; 85027; 87045; 87427; 87493; 93005; 96361; 96374; G0378; J1956; J2405; J3490; J7042